=== PATIENT | female | born 1950 | race Caucasian/White ===

== ENCOUNTER 2019-04-23 08:29 | Inpatient (IN) | payer OTHER ==
[~2019-04-23] VITALS: Ht 160 cm; Wt 99.3 kg
[~2019-04-23 08:29] MED LIST: ACCUPRIL40 MG PO; LEVOXYL125 MCG PO; PEPCID40 MG PO; SKELAXIN 800 M800 M1 PO; SYMBICORT80 MCG/4.1 INH; TRAMADOL 50 MG50 MG PO; VENTOLIN HFA 1818 GM INH; VERAPAMIL ER240 M1 PO; VIBRAMYCIN 100100 MG PO; ZOCOR 20 MG TAB20 M1 PO
[2019-04-23 08:41] VITALS: BP 171/92
[2019-04-23] MEDS ORDERED: OMEPRAZOLE 20 M20 M1 PO (08:43)
[2019-04-23] MEDS ORDERED: PROAIR HFA8.5 GM INH (08:44)
[2019-04-23 09:03] LABS: HEMATOCRIT 44.2 % (37.0-47.0); HEMOGLOBIN 14.7 gm/dL (12.0-15.0); MCH 29.2 pg (26.0-34.0); MCHC 33.4 g/dL (28.0-37.0); MCV 87.5 fL (80.0-100.0); MPV 7.2 fl. (7.2-11.1); NUCLEATED RBCS 0 /100WBC; PLATELET COUNT* 335 thou/uL (150-400); RBC 5.05 mil/uL (4.20-5.00); RDW-CV 14.4 % (10.5-14.5); WBC 7.8 thou/uL (4.0-11.0)
[2019-04-23 09:16] LABS: CALCIUM 9.3 mg/dL (8.5-10.1); CREATININE 0.8 mg/dL (0.6-1.3); POTASSIUM 3.5 mmol/L (3.5-5.1)
[2019-04-23 09:21] LABS: ALBUMIN 3.2 g/dL (3.4-5.0); TOTAL BILIRUBIN 0.6 mg/dL (<0.1-1.0); TOTAL PROTEIN 7.5 g/dL (6.4-8.2)
[2019-04-23 09:34] LABS: ABSOLUTE LYMPHOCYTES 0.5 thou/uL (0.8-5.3); ABSOLUTE MONOCYTES 0.4 thou/uL (0.0-1.2); ABSOLUTE NEUTROPHILS 6.9 thou/uL (1.6-8.1); PLATELET ESTIMATE ADEQUATE
[2019-04-23 12:46] VITALS: BP 131/67
[2019-04-23] MEDS ORDERED: MELOXICAM15 MG PO (19:06)
[2019-04-23] MEDS ORDERED: ALLEGRA ALLERGY60 MG PO (19:07)
[2019-04-23] MEDS ORDERED: VITAMIN D22000 UNIT PO (19:08)
[2019-04-23] MEDS ORDERED: ALBUTEROL2.5 MG/0.5 INH (19:10)
[2019-04-23] MEDS ORDERED: PULMICORT0.25 MG/2 NEB (19:11)
--- NOTE | 2019-04-23 19:56 | EKG ---
[place] [address] ELECTROCARDIOGRAM REPORT Name: FÉLIX WYATT Room: [address] ADM IN M.R.#: [id number] Admission: 04/23/19 Attend Phys: Augustus Wahl MD Discharge: Date of : 52 Report #: [id number] THIS REPORT FOR: //name// [facility] ED Test Date: 2019-04-23 Test Time: 08:50:26 Pat Name: FÉLIX WYATT Department: Room: [facility] Gender: F Supervising Producer: : 1950 Requested By: Luis Alberto Valenzuela Order Number: [id number] MD: León Lee Measurements Intervals [place] Rate: 93 P: 85 MS: 164 QRS: 9 QRSD: 91 T: 60 QT: 357 QTc: 445 Interpretive Statements Sinus rhythm Compared to ECG 12/27/2012 08:46:11 ST (T wave) deviation no longer present Electronically Signed On 04-23-2019 19:56:26 ENGINEERING CONSULTANT by León Lee [email or web address] <ELECTRONICALLY SIGNED> By: León Lee MD, [facility] 04/23/191955 0850 León Lee MD, [facility] /EPI
[2019-04-23 23:57] VITALS: BP 125/75
--- NOTE | 2019-04-24 04:54 | NUR ---
PATIENT SLEPT WELL DURING THE NIGHT. PT UP AD MILAN TO BATHROOM TO VOID. PT REQUESTED PAIN MEDICATION X3 AND RECEIVED FENTENYL 50MCG IV. PT REQUESTED ZOFRAN X1; GIVEN AND SCAPOLAMINE PATCH PLACED. FLUIDS/ANTIBIOTICS INFUSING PER DR ORDER. FREQUENTLY USED ITEMS AND CALL LIGHT WITHIN REACH. SIDERAILS UPX2. WILL CONTINUE TO MONITOR.
[2019-04-24 05:09] LABS: ABSOLUTE LYMPHOCYTES 0.6 thou/uL (0.8-5.3); ABSOLUTE MONOCYTES 0.8 thou/uL (0.0-1.2); ABSOLUTE NEUTROPHILS 4.5 thou/uL (1.6-8.1); BASOPHILS 0.7 %; EOSINOPHILS 0.4 %; HEMATOCRIT 40.2 % (37.0-47.0); HEMOGLOBIN 13.1 gm/dL (12.0-15.0); MCH 28.9 pg (26.0-34.0); MCHC 32.5 g/dL (28.0-37.0); MCV 89.1 fL (80.0-100.0); MPV 7.5 fl. (7.2-11.1); NUCLEATED RBCS 0 /100WBC; PLATELET COUNT* 274 thou/uL (150-400); POLYS 75.9 %; RBC 4.51 mil/uL (4.20-5.00); RDW-CV 14.5 % (10.5-14.5); WBC 5.9 thou/uL (4.0-11.0)
[2019-04-24 05:49] LABS: CALCIUM 8.4 mg/dL (8.5-10.1); CREATININE 0.7 mg/dL (0.6-1.3); POTASSIUM 3.4 mmol/L (3.5-5.1)
[2019-04-24 08:20] VITALS: BP 140/64
--- NOTE | 2019-04-24 17:28 | NUR ---
PATIENT RESTING IN BED. PATIENT IS UP AD MILAN IN ROOM. PATIENT HAS COMPLAINTS OF ABDOMINAL PAIN, TREATED ADEQUATELY WITH FENTANYL. PATIENT TAKES IN SMALL AMOUNTS OF CLEARS. PATIEN THAS COMPLAINTS OF NAUSEA, NO VOMITING, TREATED ADEQUATELY WITH ZOFRAN. PATIENT IS SQUEDULED FOR FLEXSIG IN AM, AND IS TO BE NPO AFTER MIDNIGHT. PATIENT IS PASSING SMALL AMOUNT OF FLATUS. PATIENT DENIES ANY NEEDS AT THIS TIME. CALL LIGHT WITHIN REACH.
[2019-04-24 17:29] VITALS: BP 110/56
[2019-04-25] VITALS: BP 109/39
[2019-04-25 04:37] LABS: ABSOLUTE LYMPHOCYTES 0.5 thou/uL (0.8-5.3); ABSOLUTE MONOCYTES 0.7 thou/uL (0.0-1.2); ABSOLUTE NEUTROPHILS 5.6 thou/uL (1.6-8.1); BASOPHILS 0.7 %; EOSINOPHILS 0.7 %; HEMATOCRIT 37.7 % (37.0-47.0); HEMOGLOBIN 12.3 gm/dL (12.0-15.0); LYMPHOCYTES 7.3 %; MCH 29.1 pg (26.0-34.0); MCHC 32.6 g/dL (28.0-37.0); MCV 89.2 fL (80.0-100.0); MONOCYTES 10.6 %; MPV 7.4 fl. (7.2-11.1); NUCLEATED RBCS 0 /100WBC; PLATELET COUNT* 271 thou/uL (150-400); POLYS 80.7 %; RBC 4.23 mil/uL (4.20-5.00); RDW-CV 14.7 % (10.5-14.5)
[2019-04-25 05:24] LABS: ALBUMIN 2.4 g/dL (3.4-5.0); CALCIUM 8.7 mg/dL (8.5-10.1); CREATININE 0.8 mg/dL (0.6-1.3); POTASSIUM 3.1 mmol/L (3.5-5.1); TOTAL BILIRUBIN 0.3 mg/dL (<0.1-1.0); TOTAL PROTEIN 5.9 g/dL (6.4-8.2)
[2019-04-25 07:45] VITALS: BP 102/47
[2019-04-25 09:54] VITALS: BP 102/47
[2019-04-25 16:00] VITALS: BP 100/41
--- NOTE | 2019-04-25 19:15 | NUR ---
PT ARRIVED TO UNIT AROUND 1420. AGREE WITH EARLIER ASSESSMENT OF PT. PT UP WITH SBA DUE TO RECENT ANESTHESIA. C/O SLIGHT PAIN IN ABD, NO PAIN MEDICATION REQUESTED AT THIS TIME. NO C/O NAUSEA OR DIZZINESS. ON 2L, WHEEZING HEARD MOST WHILE UP. WILL CONTINUE TO MONITOR.
[2019-04-25 19:20] VITALS: BP 111/50
[2019-04-25 23:50] VITALS: BP 134/60
[2019-04-26 03:45] VITALS: BP 111/49
[2019-04-26 04:58] LABS: HEMATOCRIT 37.6 % (37.0-47.0); MCH 28.8 pg (26.0-34.0); MCV 89.8 fL (80.0-100.0); MPV 7.3 fl. (7.2-11.1); NUCLEATED RBCS 0 /100WBC; PLATELET COUNT* 241 thou/uL (150-400); RBC 4.19 mil/uL (4.20-5.00); RDW-CV 14.7 % (10.5-14.5); WBC 8.1 thou/uL (4.0-11.0)
[2019-04-26 05:35] LABS: CALCIUM 8.8 mg/dL (8.5-10.1); CREATININE 0.7 mg/dL (0.6-1.3); MAGNESIUM 2.1 mg/dL (1.8-2.4); PHOSPHORUS* 3.2 mg/dL (2.5-4.9); POTASSIUM 3.9 mmol/L (3.5-5.1)
[2019-04-26 05:55] LABS: ABSOLUTE LYMPHOCYTES 0.4 thou/uL (0.8-5.3); ABSOLUTE MONOCYTES 0.5 thou/uL (0.0-1.2); ABSOLUTE NEUTROPHILS 7.2 thou/uL (1.6-8.1); PLATELET ESTIMATE ADEQUATE
[2019-04-26 08:11] VITALS: BP 120/45
--- NOTE | 2019-04-26 09:18 | NUR ---
ASSUMED CARE OF PT THIS AM AROUND 0715- TEST RIDER IN PLACE ORDERED, TRACING SR- UPON ASSESSMENT PT NOTED TO BE RESTING IN BED, WATCHING TV- PT A&O X4- CONTINENT VS INCONTINENT OF B/B- UP AD-MILAN IN ROOM, STEADY GAIT NOTED- DIMINISHED LUNG SOUNDS, DYSPNEA NOTED ON EXERTION- VSS, O2 SAT 97% ON 2L VIA NC- ABD SOFT/ROUND/OBESE, BS ACTIVE- PT NOTED TO BE HAVING DIARRHEA THIS AM- IV NOTED TO LEFT FA INTACT, IVF WELL ABT INFUSSING PRESCIBER- ABD X-RAY WELL CT CHEST COMPLETED THIS AM PRESCIBED, RESULTS NOTED IN MEDITECH- CLEAR LIQUID DIET IN PLACE INDICATED- PT DENIES ANY C/O PAIN/DISCOMFORT THIS AM- CALL LIGHT AND PERSONAL BELONGINGS WITH IN REACH- HOURLY ROUNDS IN PLACE R/T SAFETY/NEEDS- ALL NEEDS MET AT THIS TIME-WCTM
--- NOTE | 2019-04-26 10:52 | EKG ---
[place] [address] ELECTROCARDIOGRAM REPORT Name: FÉLIX WYATT Room: [address] ADM IN .R.#: [id number] Admission: 04/23/19 Attend Phys: Augustus Wahl MD Discharge: Date of : 52 Report #: [id number] THIS REPORT FOR: //name// [facility] Test Date: 2019-04-25 Test Time: 13:08:33 Pat Name: FÉLIX WYATT Department: Room: [facility] Gender: F Tapper Bit: LARA : 1950 Requested By: Rusty Noble Order Number: [id number] Reading MD: Jai Iglesias Measurements Intervals [place] Rate: 97 P: 85 NM: 162 QRS: 13 QRSD: 97 T: 49 QT: 372 QTc: 473 Interpretive Statements Sinus rhythm Ventricular bigeminy Borderline low voltage, extremity leads Compared to ECG 04/23/2019 08:50:26 Ventricular premature complex(es) now present Electronically Signed On 04-26-2019 10:52:24 BISQUE PLACER by Jai Iglesias [email or web address] <ELECTRONICALLY SIGNED> By: Jai Iglesias MD, [facility] 04/26/19 1052 1308 1308 Jai Iglesias MD, [facility] /EPI
[2019-04-26 12:58] VITALS: BP 120/48
--- NOTE | 2019-04-26 13:03 | NUR ---
cm completed initial assessment to discuss d/c planning. pt lives @ home w/sister. pt sister is supportive. pt is independent w/ADLs, active and employeed. pt states she has a nebulizer at home. pt denies hx w/snf/hh. no needs identified at this time. cm to remain avial to assist as needed.
[2019-04-26 16:00] VITALS: BP 123/59
[2019-04-26 19:40] VITALS: BP 110/56
[2019-04-27] VITALS: BP 116/59
[2019-04-27 04:00] VITALS: BP 96/51
[2019-04-27 08:06] VITALS: BP 119/51
[2019-04-27 11:02] LABS: URINE BILIRUBIN NEGATIVE (Negative); URINE BLOOD TRACE (Negative); URINE CLARITY CLEAR; URINE COLOR YELLOW; URINE GLUCOSE-RANDOM NEGATIVE (Negative); URINE KETONES 1+ (Negative); URINE LEUKOCYTES-REFLEX NEGATIVE (Negative); URINE NITRITE-REFLEX NEGATIVE (Negative); URINE PROTEIN NEGATIVE (Negative); URINE SPECIFIC GRAVITY 1.025 (1.005-1.030); URINE UROBILINOGEN 0.2 E.U./dl (0.2-1.0)
[2019-04-27 12:16] VITALS: BP 126/61
--- NOTE | 2019-04-27 18:39 | NUR ---
Pt transfered to room 312. Report called to NEDRA Swanson. All pt belongings taken with pt.
--- NOTE | 2019-04-27 20:02 | NUR ---
PATIENT ALERT AND ORIENTED X4. ALL SAFETY MEASURES MAINTAINED. PATIENT DENIES FURTHER NEEDS/ QUESTIONS AT THIS TIME. REPORT FROM NEDRA IRVING.
[2019-04-27 21:00] VITALS: BP 123/62
[2019-04-28 04:53] LABS: ALBUMIN 2.3 g/dL (3.4-5.0); CALCIUM 8.7 mg/dL (8.5-10.1); CREATININE 0.6 mg/dL (0.6-1.3); MAGNESIUM 2.1 mg/dL (1.8-2.4); PHOSPHORUS* 3.1 mg/dL (2.5-4.9); TOTAL BILIRUBIN 0.4 mg/dL (<0.1-1.0); TOTAL PROTEIN 5.7 g/dL (6.4-8.2)
[2019-04-28 05:21] LABS: ABSOLUTE EOSINOPHILS 0.1 thou/uL (0.0-0.7); ABSOLUTE LYMPHOCYTES 0.8 thou/uL (0.8-5.3); ABSOLUTE MONOCYTES 0.6 thou/uL (0.0-1.2); ABSOLUTE NEUTROPHILS 4.9 thou/uL (1.6-8.1); BASOPHILS 0.7 %; EOSINOPHILS 1.4 %; HEMATOCRIT 37.2 % (37.0-47.0); HEMOGLOBIN 12.2 gm/dL (12.0-15.0); LYMPHOCYTES 12.2 %; MCH 29.1 pg (26.0-34.0); MCHC 32.9 g/dL (28.0-37.0); MCV 88.7 fL (80.0-100.0); MONOCYTES 9.6 %; MPV 7.9 fl. (7.2-11.1); NUCLEATED RBCS 0 /100WBC; PLATELET COUNT* 237 thou/uL (150-400); POLYS 76.1 %; RDW-CV 14.7 % (10.5-14.5); WBC 6.4 thou/uL (4.0-11.0)
[2019-04-28 05:30] LABS: POTASSIUM 2.9 mmol/L (3.5-5.1)
--- NOTE | 2019-04-28 05:54 | NUR ---
PATIENT SLEPT PART OF THE NIGHT. IV FLUIDS AND ANTIBIOTICS WERE GIVEN ORDERED. PATIENT STARTED POOPING FROM MAG CITRATE THAT WAS GIVEN. PATIENT REMAINS ON 2L PER NASAL CANNULA. WILL CONTINUE TO MONITOR.
[2019-04-28 08:00] VITALS: BP 134/56
--- NOTE | 2019-04-28 14:52 | NUR ---
RIGHT BASILIC VESSEL ACCESSED FOR 4 [place] SINGLE LUMEN PICC. LINE PRE-TRIMMED TO 43CM AND ADVANCED TO THE ZERO CLOTILDE WITH NO RESISTANCE MET. UPPER ARM CIRCUMFERENCE ABOVE INSERTION SITE=12 1/2". SHERLOCK MAGNET AND 3CG CONFIRMATION OF TIP TERMINATION AT THE CAVOATRIAL JUNCTION APPRECIATED. GUIDEWIRE REMOVED, LINE FLUSHED AND INSERTINO SITE DRESSED. REPORT GIVEN RANJAN SNEED.
[2019-04-28 16:00] VITALS: BP 139/69
--- NOTE | 2019-04-28 17:15 | NUR ---
PT UP IN ROOM WITH STEADY GAIT. BOWEL PREP TODAY. PT HAS HAD MULTIPLE LOOSE STOOLS. IVF INFUSING. DENIES PAIN N/V. PLAN FOR SURGERY IN AM
[2019-04-28 19:40] VITALS: BP 159/66
[2019-04-29 04:21] LABS: HEMATOCRIT 36.2 % (37.0-47.0); HEMOGLOBIN 11.9 gm/dL (12.0-15.0); MCHC 32.8 g/dL (28.0-37.0); MCV 88.5 fL (80.0-100.0); MPV 7.7 fl. (7.2-11.1); RBC 4.09 mil/uL (4.20-5.00); RDW-CV 14.5 % (10.5-14.5); WBC 7.3 thou/uL (4.0-11.0)
[2019-04-29 04:29] VITALS: BP 159/66
[2019-04-29 04:29] LABS: ALBUMIN 2.2 g/dL (3.4-5.0); CALCIUM 8.4 mg/dL (8.5-10.1); CREATININE 0.6 mg/dL (0.6-1.3); POTASSIUM 3.4 mmol/L (3.5-5.1); TOTAL BILIRUBIN 0.4 mg/dL (<0.1-1.0); TOTAL PROTEIN 5.5 g/dL (6.4-8.2)
--- NOTE | 2019-04-29 06:26 | NUR ---
PT ALERT AND ORIENTED. VSS ON RA. SLEPT OFF AND ON THIS SHIFT. PT ON BOWEL PREP. PT HAD SEVERAL BMs THIS SHIFT. UP AD MILAN TO BSC. RUBIA PICC. MEDS GIVEN PER EMAR. NPO AFTER MIDNIGHT. PRE OP CHECKLIST INITIATED. PRE OP TO STOCK TRACER PT AT 0730. NO PAIN THIS SHIFT. CALL LIGHT WITHIN REACH. HOURLU ROUNDINGS MADE. WILL CONTINUE TO MONITOR.
--- NOTE | 2019-04-29 07:30 | NUR ---
PT TO OR FOR SURGERY. PT UP TO RESTROOM PRIOR TO LEAVING UNIT. PT A&OX4, UP AD MILAN GAIT STEADY. PT LEAVES UNIT ON BED WITH OR STAFF.
--- NOTE | 2019-04-29 16:48 | NUR ---
THIS PT WENT TO PACU AT BEGINNING OF THIS NURSE'S SHIFT PRIOR TO ASSESSMENT. PT WILL NOT BE RETURNING TO THIS UNIT POST-OP. PT TO GO TO TELE FLOOR FOR OBSERVATION AND MONITORING.
[2019-04-29 20:00] VITALS: BP 109/54
[2019-04-30] VITALS: BP 107/52
[2019-04-30 04:00] VITALS: BP 108/48
[2019-04-30 05:15] LABS: HEMATOCRIT 35.7 % (37.0-47.0); HEMOGLOBIN 11.5 gm/dL (12.0-15.0); MCHC 32.3 g/dL (28.0-37.0); MCV 89.6 fL (80.0-100.0); MPV 7.5 fl. (7.2-11.1); RBC 3.98 mil/uL (4.20-5.00); WBC 14.5 thou/uL (4.0-11.0)
[2019-04-30 05:34] LABS: ALBUMIN 1.8 g/dL (3.4-5.0); CALCIUM 8.2 mg/dL (8.5-10.1); CREATININE 0.6 mg/dL (0.6-1.3); MAGNESIUM 2.2 mg/dL (1.8-2.4); PHOSPHORUS* 3.8 mg/dL (2.5-4.9); POTASSIUM 4.4 mmol/L (3.5-5.1); TOTAL BILIRUBIN 0.4 mg/dL (<0.1-1.0)
--- NOTE | 2019-04-30 07:25 | NUR ---
CHANGE OF SHIFT, BEDSIDE REPORT GIVEN PATIENT SEEN AT BEDSIDE, IN BED ASLEEP ASSUMED PATIENT CARE
[2019-04-30 08:00] VITALS: BP 124/37
--- NOTE | 2019-04-30 08:08 | NUR ---
REPORT RECEIVED FROM PACU NURSE AT 1920. PATIENT ORIENTED TO ROOM, BED, CALL LIGHT, AND HOSPITAL POLICY. FALL PRECAUTIONS IN PLACE. SURGICAL DRESSINGS CDI. CONTINUOUS PULSE OXIMETRY IN PLACE. PAIN AND NAUSEA MEDS GIVEN PER EMAR. BUSTOS DRAINING DEPENDENTLY. HOURLY ROUNDING IN PLACE FOR PATIENT SAFETY. CLWR.
--- NOTE | 2019-04-30 08:27 | NUR ---
I HAVE REVIEWED THE DOCUMENTATION OF PARVEZ SNEED. I CONCUR WITH HIS CHARTING.
[2019-04-30 11:55] VITALS: BP 135/45
--- NOTE | 2019-04-30 13:59 | NUR ---
Nutrition: Pt admitted with colitis, diverticular stricture. Is now CLD, Ensure Clear ordered. Bed wt is up 223#. Seen for LOS. Encouraging nutritional supplements. Protein stores are severely low. Once pt diet advances, would recommend a protein supplement as well - Beneprotein. Mild to moderate risk. No other nutrition interventions needed at [facility]. Will follow up on diet order, po intake, labs 05/04/19.
[2019-04-30 15:33] VITALS: BP 135/49
[2019-04-30 20:00] VITALS: BP 114/49
[2019-05-01 04:00] VITALS: BP 130/54
[2019-05-01 04:43] LABS: HEMATOCRIT 31.9 % (37.0-47.0); HEMOGLOBIN 10.1 gm/dL (12.0-15.0); MCH 28.5 pg (26.0-34.0); MCHC 31.9 g/dL (28.0-37.0); MCV 89.3 fL (80.0-100.0); MPV 7.4 fl. (7.2-11.1); RBC 3.57 mil/uL (4.20-5.00); RDW-CV 15.4 % (10.5-14.5); WBC 13.3 thou/uL (4.0-11.0)
[2019-05-01 05:04] LABS: ALBUMIN 1.6 g/dL (3.4-5.0); CALCIUM 8.4 mg/dL (8.5-10.1); CREATININE 0.5 mg/dL (0.6-1.3); MAGNESIUM 2.1 mg/dL (1.8-2.4); PHOSPHORUS* 2.2 mg/dL (2.5-4.9); POTASSIUM 3.9 mmol/L (3.5-5.1); TOTAL BILIRUBIN 0.4 mg/dL (<0.1-1.0); TOTAL PROTEIN 5.1 g/dL (6.4-8.2)
--- NOTE | 2019-05-01 07:58 | NUR ---
ASSUMED PATIENT CARE AT 1900. ASSESSMENT COMPLETED CHARTED. PATIENT IS MED-SURG ON THE MONITOR. HOURLY ROUNDING IN PLACE FOR PATIENT SAFETY. CLWR.
[2019-05-01 08:00] VITALS: BP 121/56
[2019-05-01 10:01] LABS: % SATURATION 9 % (20-39); IRON 9 ug/dL (50-175)
[2019-05-01 16:00] VITALS: BP 122/62
--- NOTE | 2019-05-01 18:00 | NUR ---
ASSUMED PT CARE AT 0700, A&O X4, VSS, REMAINS ON O2 AT 3LPM VIA NC, LS DIMINISHED, PT UP WITH ASSIST TO BEDSIDE COMMODE, TOLERATING WELL, PASSING FLATULAS BUT UNABLE TO HAVE BOWEL MOVEMENT THIS SHIFT, BS HYPO ACTIVE, CONT ON SOFTENERS, FULL ASSESSMENT CHARTED. PICC LINE REMAINS PATENT WITH DRESSING CLEAN, DRY, AND INTACT. HOURLY ROUNDING COMPLETED.
[2019-05-01 19:40] VITALS: BP 118/66
[2019-05-02] VITALS: BP 110/49
--- NOTE | 2019-05-02 05:09 | NUR ---
PT CARE ASSUMED AT 1930. SAT MAINTAINED IN O2. ALERT AND ORIENTED X4. PT IS PAINFUL. CALL LIGHT WITHIN REACH AND BED IN LOW POSITION. SURGICAL SITE C/D/I. HOURLY ROUNDING DONE FOR PT SAFETY.
[2019-05-02 05:28] LABS: HEMATOCRIT 29.6 % (37.0-47.0); HEMOGLOBIN 9.7 gm/dL (12.0-15.0); MCH 29.3 pg (26.0-34.0); MCHC 32.8 g/dL (28.0-37.0); MCV 89.4 fL (80.0-100.0); MPV 7.7 fl. (7.2-11.1); RBC 3.31 mil/uL (4.20-5.00); RDW-CV 15.1 % (10.5-14.5); WBC 10.2 thou/uL (4.0-11.0)
[2019-05-02 05:39] LABS: CALCIUM 8.2 mg/dL (8.5-10.1); CREATININE 0.5 mg/dL (0.6-1.3); POTASSIUM 3.6 mmol/L (3.5-5.1)
[2019-05-02 16:26] VITALS: BP 135/67
--- NOTE | 2019-05-02 17:15 | NUR ---
pt to room 112 via wc. Call light within reach. Pt oriented to unit. Denies pain at this time
--- NOTE | 2019-05-02 17:25 | NUR ---
ASSUMED PT CARE AT 0700, PT A&O X4, REMAINS ON 2 LPM O2 VIA NC, MED SURG STATUS, FULL ASSESSMENT CHARTED. US TO RUE SHOWS CLOTS TO SUPERFICIAL VEINS, PICC LINE REMOVED, PT TOLERATED WELL. PT MOVED TO J&S UNIT AT APPROX 1720, REPORT GIVEN TO NEDRA GARZA. ALL BELONGINGS MOVED WITH PT, FAMILY NOTIFIED BY PT WELL. HOURLY ROUNDING COMPLETED.
[2019-05-02 19:10] VITALS: BP 123/58
--- NOTE | 2019-05-02 23:06 | NUR ---
[place] COMPLETED AT 191. PT PLEASANT AND COOPERATIVE, DENIED PAIN OR DISCOMFORT AT THAT TIME. VITAL SIGNS WITHIN NORMAL LIMITS. CALL LIGHT IN REACH, PT DEMONSTRATEDS PROPER USE.
--- NOTE | 2019-05-03 06:44 | NUR ---
DR VÁZQUEZ HERE THIS AM TO ASSES PT. RECIEVED ORDER TO INSERT PERIPHERAL IV IN LEFT UPPER EXTREMITY.
--- NOTE | 2019-05-03 06:58 | NUR ---
20 GUAGE SALINE LOCK INSERTED IN LEFT FOREARM.
--- NOTE | 2019-05-03 07:15 | NUR ---
CHANGE OF SHIFT, BEDSIDE REPORT GIVEN PATIENT SEEN AT BEDSIDE, IN BED RESTING ASSUMED PATIENT CARE
[2019-05-03 07:40] VITALS: BP 96/58
[2019-05-03 07:45] VITALS: BP 94/47
[2019-05-03 12:15] VITALS: BP 107/69
--- NOTE | 2019-05-03 14:03 | NUR ---
CODE STROKE CALLED ON PATIENT D/T PATIENT'S FAMILY CONCERN RE: MENTAL STATUS CHANGE, WELL DIETARY'S CONCERN THAT THE PATIENT HAD CHANGED. DR. MITCHELL AT BEDSIDE AND STATES PATIENT DOES NOT APPEAR TO HAVE A CHANGE IN MENTAL STATUS. DR. OHARA HAD BEEN NOTIFIED BY PATIENT'S RN AND ORDERS RECV'D FOR CODE STROKE CT AND TRANSFER TO TELE. O2 OFF PATIENT. REPLACED AT 2 L NC. BP 107/57, RR 18, HR 110 (IRREGULAR), SPO2 82% THEN UP TO >90% AFTER O2 REPLACED. BS 102. NIH COMPLETED. SEE CHARTING. PATIENT TRANSPORTED TO CT. BLOOD DRAWN. DR OHARA NOTIFIED OF HYPOXIA UPON ARRIVAL TO TELE.
--- NOTE | 2019-05-03 14:45 | NUR ---
PATIENT TRANSFER FROM [facility] REPORT GIVEN FROM KASSIDY PATIENT TO VIA BED PATIENT ORIENTED TO AND CALL LIGHT IN REACH O2 2L NC O2 SATS 93% DENIES PAIN TELE STATUS ST/PACS RATES 107
--- NOTE | 2019-05-03 15:07 | PATH ---
[address] [address] PATHOLOGY RPT PROCEDURE Name: ELI WYATT Room: [address] IN .R.#: [id number] Admission: 04/23/19 Date of : 52 Discharge: Report #: [id number] Path Case #: [id number] [facility] Accession Number: [id number] . 01 Material submitted: . colon - SIGMOID COLON. Modifiers: sigmoid . 01 Clinical history: . Diverticulitis . 02 Diagnosis: Sigmoid colon: - Segment of benign colon with severe diverticular disease including chronic and acute diverticulitis with mural abscess formation and fibrosis, acute serositis and serosal adhesions. - One benign and hyperplastic pericolic lymph node. - Two additional segments of benign colonic tissue suggesting anastomotic rings, one with submucosal/stromal black pigment tattooing (segment without blue stitch). (SHINE:raquel; 05/03/2019) QTP 05/03/2019 1447 Local . 02 Electronically signed: . Mark Ferrara MD, Pathologist NPI- [id number] . 01 Gross description: . The specimen is received in formalin, labeled "Eli Wyatt, sigmoid colon" and consists of a segment of colon measuring 26.0 cm in length and up to 4.8 cm in diameter with pericolic fat measuring up to 6.8 cm. Both margins are closed with a line of tung. The segment is unoriented. The serosa is pink-hicks with thin adhesions and scattered hemorrhage. Opening reveals 2 stents embedded within the lumen. The mucosa is pink-hicks and irregular due to the shape of the stents. No mass lesions are identified. Sectioning reveals multiple diverticula varying from smooth mucosal lined out pouch is 2 hemorrhagic and pink-red. No perforations are identified. Present within the pericolonic fat are a few readily identifiable lymph nodes measuring up to 0.9 cm. Present at the bottom of the container are 2 segments of gastrointestinal tissue. One has a blue stitch measuring 4.0 x 1.0 x 0.5 cm. The other has a line of tung measuring 4.5 x 1.6 x 1.0 cm. Sales Floor Associate sections are submitted as follows: . A1-A2: Margins A2-A5: Diverticula A6: Largest readily identifiable lymph node, trisected A7: Additionally received gastrointestinal tissue/possible anastomotic rings (blue stitch segment inked black) [place] [address] PATHOLOGY RPT PROCEDURE Name: ELI WYATT Room: [address] IN [facility]#: [id number] Admission: 04/23/19 Date of : 52 Discharge: Report #: [id number] Path Case #: [id number] (SDY; 04/30/2019) SYU/SYU 04/30/2019 1949 Local . 02 Pathologist provided ICD-10: K57.32, K65.8 . 02 CPT . 436677 Specimen Comment: A courtesy copy of this report has been sent to [phone] Specimen Comment: [phone], Specimen Comment: Report sent to , and Performed at: [address] [facility], [place] [address] MD Bud Mcmillan MD Phone: [phone] Performed at: [facility] [address], [place], [place] [address] MD Mark Ferrara MD Phone: [phone]
[2019-05-03 16:24] VITALS: BP 112/60
[2019-05-03 17:31] LABS: BE 1.1 mmol/L (-2 to +3); PCO2 41.4 mmHg (35.0-45.0); PO2 69.2 mmHg (75.0-100.0); pH 7.413 (7.340-7.450)
[2019-05-03 18:09] LABS: ALBUMIN 1.6 g/dL (3.4-5.0); CREATININE 0.7 mg/dL (0.6-1.3); POTASSIUM 3.8 mmol/L (3.5-5.1); TOTAL BILIRUBIN 0.5 mg/dL (<0.1-1.0)
--- NOTE | 2019-05-03 19:22 | CON ---
[address] [address] CONSULTATION Name: FÉLIX WYATT Room: [address] IN M.R.#: [id number] Admission: 04/23/19 Attend Phys: Mehran Wahl MD Discharge: Date of : 52 Report #: [id number] THIS REPORT FOR: //name// CC: MEHRAN Wahl [facility] Richard Odom DATE OF SERVICE: 04/23/2019 REASON FOR CONSULTATION: Abdominal pain. IMPRESSION: 1. Acute left lower quadrant pain with low-grade fever and abnormal CAT scan of the sigmoid colon -- suspect acute diverticulitis with possible obstruction. 2. Abdominal distention secondary to acute left lower quadrant pain with some element of colonic obstruction. RECOMMENDATIONS: 1. We will continue the patient with IV fluids, IV antibiotics, pain medications, antiemetics. 2. We will check serial x-rays to ensure that her abdomen is not getting worse as far as her colonic distention is concerned. 3. We will consult General Surgery in case she does not respond to IV antibiotics and develops worsening of her colonic obstruction. 4. Begin the patient on clear liquid diet at this time. 5. Make adjustments in her pain medications and antiemetics. 6. Hopefully, she will respond to medical measures and will not have to undergo exploratory laparotomy with sigmoid resection and temporary colostomy. At this time, I do not have any plans for flexible sigmoidoscopy. We will work with Surgery with regards to the same. 7. I have discussed these plans with the patient as well as her sister, Ericka, and they are agreeable to the same. 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 She has never had this kind of problem in the past, but has noted that her bowels would become a little bit more difficult to pass. She also had problem with increasing abdominal obstruction or abdominal distention. She had low-grade fevers and chills, but nothing as severe. She also had some nausea, not wanted to eat. She has never undergone previous studies of her upper or lower GI tract in the past. She is admitted to the hospital after being seen through Emergency Room with findings of colitis involving the sigmoid colon and [place] [address] CONSULTATION Name: FÉLIX WYATT Darius Room: [address]#: [id number] Admission: 04/23/19 Attend Phys: Mehran Wahl MD Discharge: Date of : 52 Report #: [id number] ALLERGIES: ERYTHROMYCIN. MEDICATIONS: Zocor, Accupril, levothyroxine, verapamil, omeprazole, and ProAir. PAST MEDICAL HISTORY: Remarkable for hypertension and hypothyroidism. She has chronic obstructive pulmonary disease, seasonal allergies. PAST SURGICAL HISTORY: She had previous left foot surgery as well. SOCIAL HISTORY: The patient smokes every day, does not drink alcohol. FAMILY HISTORY: Unremarkable. PHYSICAL EXAMINATION: GENERAL: Pleasant 68-year-old white female who appears older than her stated age. CARDIOPULMONARY: Revealed a regular rate and rhythm. She had diminished breath sounds. ABDOMEN: Soft. Was distended. She is tympanic. No rebound or guarding noted. LABORATORY DATA: Her laboratory tests from admission revealed white count of 7.8, hemoglobin 14.7, platelet count of 335,000. Her differential is normal. Sodium 139, potassium 3.5, chloride 102, bicarbonate is 25, BUN 21, creatinine 0.8. GFR 72. CT scan of the abdomen and pelvis revealed circumferential mural thickening and narrowing in the distal descending colon spanning a distance of about 15 cm with mild pericolonic soft tissue stranding concerning for focal colitis versus less likely a tumor. There were also some diverticula noted within the same. There was also a 1.9 x 1.7 x 1.1 soft tissue nodule within the right lung base, which is nonspecific and will need to be evaluated further with CT scan of the chest. DISCUSSION: At the present time, the patient has some issues with what appears to be diverticulitis. If she does not improve, she may need to have surgical intervention. We will continue to follow while in the hospital. <ELECTRONICALLY SIGNED> By: Arcadio Mcwilliams DO 05/03/191921 08 0023Gstacey Mcwilliams DO /nt
[2019-05-03 20:00] VITALS: BP 112/68
[2019-05-04] VITALS: BP 94/52
[2019-05-04 04:00] VITALS: BP 83/55; BP 98/44
[2019-05-04 05:47] LABS: CHOLESTEROL 105 mg/dL (<200); HDL CHOLESTEROL 19 mg/dL (>40); LDL CHOLESTEROL 67 mg/dL (<100); TC:HDL 5.5 Ratio (Not establshd); TRIGLYCERIDE 98 mg/dL (<150); VLDL 20 mg/dL (<40)
[2019-05-04 05:55] LABS: SERUM ASSESSMENT Clear
--- NOTE | 2019-05-04 06:56 | NUR ---
ASSUMED CARE OF PT AFTER REPORT AT 1930. PT A&O2-4. FORGETFUL AT TIMES. VSS. PHYSICAL ASSESSMENT COMPLETED AND CHARTED. PT ON O2 AT 2L NC. PT TRACING SR/PVC ON TELE. PT UP WITH 1 ASSIST TO BSC. PT COMPLAINED OF LLQ ABDOMINAL PAIN-MEDS GIVEN PER JUL. [facility] CHARTED. CALL LIGHT WITHIN REACH.
[2019-05-04 08:00] VITALS: BP 121/51
--- NOTE | 2019-05-04 11:22 | NUR ---
cm touchbased w/pt to see she had any questions/concerns. pt denies. states she still doesnt know when she will be d/c. cm reminded pt cm is avail to assist as needed.
--- NOTE | 2019-05-04 11:32 | NUR ---
Nutrition: reassessment. Diet order advanced to Soft. Pt tolerating po. Severely depleted protein stores - albumin 1.6, prealb 4.5. RD will order Beneprotein TID. Wt: 219#. GOALS: continue good po intake. Mild risk. Will continue to follow per protocol, 05/11/19.
[2019-05-04 12:02] VITALS: BP 105/71
[2019-05-04 15:32] VITALS: BP 122/59
[2019-05-04 20:10] VITALS: BP 130/60
--- NOTE | 2019-05-04 20:24 | NUR ---
ASSUMED PT CARE AT 0730. ASSESSMENT COMPLETED CHARTED. ABLE TO MAKE NEEDS KNOWN. UP WITH 1 TO BSC. C/O ABDOMINAL PAIN EARLIER IN SHIFT THAT WAS MOSTLY RELIEVED BY TYLENOL. RESTING IN BED MOST OF THE DAY. FAMILY AT BEDSIDE DURING THE LAST COUPLE HOURS OF SHIFT, ASKED MULTIPLE QUESTIONS AND NOTED TO WANT TO TALK TO PHYSICIANS TOMORROW. WILL CONTINUE TO MONITOR.
[2019-05-05] VITALS: BP 116/55
[2019-05-05 02:06] LABS: GLYCOHEMOGLOBIN (HGB A1C) 5.4 % (4.8-5.6)
[2019-05-05 03:20] LABS: ABSOLUTE EOSINOPHILS 0.1 thou/uL (0.0-0.7); ABSOLUTE LYMPHOCYTES 0.3 thou/uL (0.8-5.3); ABSOLUTE NEUTROPHILS 7.4 thou/uL (1.6-8.1); BASOPHILS 0.3 %; EOSINOPHILS 0.9 %; HEMATOCRIT 29.4 % (37.0-47.0); HEMOGLOBIN 9.7 gm/dL (12.0-15.0); LYMPHOCYTES 3.1 %; MCH 28.8 pg (26.0-34.0); MCHC 32.8 g/dL (28.0-37.0); MCV 87.8 fL (80.0-100.0); MONOCYTES 11.3 %; MPV 7.9 fl. (7.2-11.1); NUCLEATED RBCS 0 /100WBC; POLYS 84.4 %; RBC 3.35 mil/uL (4.20-5.00); RDW-CV 14.6 % (10.5-14.5); WBC 8.7 thou/uL (4.0-11.0)
[2019-05-05 03:23] LABS: PLATELET COUNT* 346 thou/uL (150-400)
[2019-05-05 03:29] LABS: CALCIUM 7.8 mg/dL (8.5-10.1); CREATININE 0.5 mg/dL (0.6-1.3); MAGNESIUM 1.8 mg/dL (1.8-2.4); POTASSIUM 3.1 mmol/L (3.5-5.1)
[2019-05-05 04:00] VITALS: BP 111/56
--- NOTE | 2019-05-05 07:18 | NUR ---
PATIENT HAS REMAINED A&OX4 THROUGHOUT SHIFT. NO CONFUSION NOTED. PATIENT ON 2L O2 NC, ALTHOUGH SHE REMOVES NASAL CANNULA AT TIMES AND DESATS TO MID 80'S. DRESSINGS REMAIN INTACT TO ABD WITH DRIED DRAINAGE. UP WITH ASSIST TO BSC. CALL LIGHT WITHIN REACH
[2019-05-05 08:00] VITALS: BP 121/57
[2019-05-05 11:00] VITALS: BP 114/55
--- NOTE | 2019-05-05 12:18 | NUR ---
CONTINUE TO FOLLOW, MET WITH PT SLEEPY TODAY. PT VOICED THAT SHE FEELS WEAK AND UNSURE SHE CAN RETURN HOME AT [place] HER SISTER WORKS DURING THE DAY. PT IS INTERESTED IN SNF AND AFTER OPTIONS DISCUSSED WANTS [facility] AND THEN [facility]. BOTH HAVE AVAILABILITY. PT WANTS TO CHECK [facility]. CALLED AND FAXED REFERRAL TO [facility].
--- NOTE | 2019-05-05 15:28 | EKG ---
[place] [address] ELECTROCARDIOGRAM REPORT Name: FÉLIX WYATT Room: [address] ADM IN M.R.#: [id number] Admission: 04/23/19 Attend Phys: Augustus Wahl MD Discharge: Date of : 52 Report #: [id number] THIS REPORT FOR: //name// [facility] Test Date: 2019-05-05 Test Time: 13:58:13 Pat Name: FÉLIX RAYRP Department: Room: [address] Gender: F Platemaker: : 1950 Requested By: Paula Sanford Order Number: [id number] Reading MD: Jae Jj Measurements Intervals [place] Rate: 141 P: ND: QRS: 4 QRSD: 60 T: QT: 306 QTc: 469 Interpretive Statements Atrial fibrillation Low voltage, precordial leads Baseline wander in lead(s) V1 Compared to ECG 04/25/2019 13:08:33 Sinus rhythm no longer present Ventricular premature complex(es) no longer present Electronically Signed On 05-05-2019 15:28:04 CASE WORKER by Jae Jj [email or web address] <ELECTRONICALLY SIGNED> By: Jae Jj MD, FAC 05/05/19 1528 1358 1358 Jae Jj MD, [facility] /EPI
[2019-05-05 16:00] VITALS: BP 120/41
--- NOTE | 2019-05-05 17:12 | 2DMMODE ---
[place] [address] 2 D/M-MODE ECHOCARDIOGRAM Name: FÉLIX WYATT Room: [address] IN [facility]#: [id number] Admission: 04/23/19 Attend Phys: Augustus Wahl, Discharge: Date of : 52 Date of Service: 05/05/19 1711 Report #: [id number] THIS REPORT FOR: //name// APPROVED REPORT Study performed: 05/05/2019 16:13:46 EXAM: Comprehensive 2D, Doppler, and color-flow Echocardiogram Patient Location: In-Patient Room #: 225 Status: routine BSA: 1.91 HR: 86 bpm BP: 114/55 mmHg Rhythm: NSR Other Information Study Quality: Adequate Technically limited study due to POOR APICAL VIEWS, UNABLE TO POSITION PATIENT. Indications Atrial Fibrillation 2D Dimensions IVSd: 10.75 (7-11mm) LVOT Diam: 20.00 (18-24mm) LVDd: 43.03 mm PWd: 9.99 (7-11mm) LVDs: 29.28 (25-40mm) Aortic Root: 32.35 mm Aortic Valve AoV Peak Brennen.: 1.89 m/s AO Peak Gr.: 14.36 mmHg LVOT Max P.50 mmHg AO Mean Gr.: 9.07 mmHg LVOT Mean P.26 mmHg LVOT Max V: 1.06 m/s AO V2 VTI: 30.09 cm LVOT Mean V: 0.69 m/s DIONNE (VTI): 1.77 cm2 LVOT V1 VTI: 16.94 cm Mitral Valve E/A Ratio: 0.50 MV Decel. Time: 203.88 ms MV E Max Brennen.: 0.60 m/s MV PHT: 59.12 ms MVA (PHT): 3.72 [place]2 [place] [address] 2 D/M-MODE ECHOCARDIOGRAM Name: FÉLIX WYATT Room: [address] IN [facility]#: [id number] Admission: 04/23/19 Attend Phys: Augustus Wahl, Discharge: Date of : 52 Date of Service: 05/05/19 1711 Report #: [id number] Pulmonary Valve PV Peak Brennen.: 1.12 m/s PV Peak Gr.: 5.06 mmHg Left Ventricle The left ventricle is normal size. There is normal LV segmental wall motion. There is normal left ventricular wall thickness. Left ventricular systolic function is normal. LVEF is 55-60%. Grade I - abnormal relaxation pattern. Right Ventricle The right ventricle is normal size. The right ventricular systolic function is normal. Atria The left atrium size is normal. The right atrium size is normal. Aortic Valve The aortic valve is normal in structure. No aortic regurgitation is present. There is no aortic valvular stenosis. Mitral Valve The mitral valve is normal in structure. There is no mitral valve regurgitation noted. No evidence of mitral valve stenosis. Tricuspid Valve The tricuspid valve is normal in structure. Unable to assess PA pressure. Trace tricuspid regurgitation. Pulmonic Valve The pulmonary valve is normal in structure. There is no pulmonic valvular regurgitation. Great Vessels The aortic root is normal in size. IVC is normal in size and collapses >50% with inspiration. Pericardium There is no pericardial effusion. <Conclusion> The left ventricle is normal size. There is normal left ventricular wall thickness. Left ventricular systolic function is normal. LVEF is 55-60%. [place] [address] 2 D/M-MODE ECHOCARDIOGRAM Name: FÉLIX WYATT Room: [address] IN [facility]#: [id number] Admission: 04/23/19 Attend Phys: Augustus Wahl, Discharge: Date of : 52 Date of Service: 05/05/191710 Report #: [id number] Grade I - abnormal relaxation pattern. Trace tricuspid regurgitation. IVC is normal in size and collapses >50% with inspiration. <ELECTRONICALLY SIGNED> By: León Lee MD, [facility] 05/05/191710 10 10 León Lee MD, FACC /INF
[2019-05-05 19:40] VITALS: BP 112/55
--- NOTE | 2019-05-05 22:40 | OP ---
[address] [address] OPERATIVE REPORT Name: FÉLIX WYATT Room: [address] IN M.R.#: [id number] Admission: 04/23/19 Attend Phys: Augustus Wahl MD Discharge: Date of : 52 Report #: [id number] THIS REPORT FOR: //name// CC: Augustus Odom DATE OF SERVICE: 04/29/2019 SURGEON: Jean-Claude Michaels DO DIRECTOR OF COLLECTIONS AND ARCHIVES: Dr. Erickson Diamond. PREOPERATIVE DIAGNOSIS: Complicated diverticulitis, diverticular stricture. POSTOPERATIVE DIAGNOSIS: Complicated diverticulitis, diverticular stricture. PROCEDURE: Hand-assisted laparoscopic sigmoidectomy with primary anastomosis. INDICATIONS: The patient is a 68-year-old female who presented to the hospital with abdominal pain, abdominal distention and discomfort. She had never had a colonoscopy. CT imaging revealed a mass-like structure with pericolonic stranding at her sigmoid colon. She underwent a colonoscopy with the GI team. The colonoscopy revealed a diverticular stricture with purulence on exam. The stricture was able to be traversed with a colonoscope. She was kept in the hospital and given a slow bowel prep over a 2-day period. During the colonoscopy, 2 stents were also left to prevent a complete obstruction. The risks and benefits of surgery were discussed in detail with the patient including bleeding, infection, damage to nearby structures including the small bowel, colon, ureter and vascular structures. The patient agreed to proceed with an operation. DESCRIPTION OF PROCEDURE: The patient was taken to the operating theater and placed in the supine position. General anesthesia was induced without complication. She had been receiving antibiotics on the floor. Bilateral SCDs were placed. A timeout was performed and all were in agreement. The patient was then positioned in the modified lithotomy position and her abdomen was prepped and draped in the standard sterile fashion. Next, a Paradise trocar entry was performed 3 fingerbreadths above the umbilicus. A small skin incision was made using a 10 blade scalpel. Dissection was carried down to the midline fascia using S retractors. The fascia was incised using electrocautery and the peritoneum was entered bluntly. Paradise trocar was placed and 2 stay sutures were used on both sides of the fascia to secure the Paradise trocar. The abdomen was insufflated without complication. Next, two more 5 mm ports were placed, one in the left upper quadrant and one in the right lower quadrant under direct visualization without complication. The patient was then placed in steep Trendelenburg and the sigmoid colon was seen to [place] [address] OPERATIVE REPORT Name: FÉLIX WYATT Room: [address] IN ..#: [id number] Admission: 04/23/19 Attend Phys: Augustus Wahl MD Discharge: Date of : 52 Report #: [id number] pelvic wall. There was significant induration and inflammation in this area. The colonic stents could be felt. There was no pericolonic abscess or signs of active infection. Next, the patient was placed in reverse Trendelenburg and the lesser sac was entered using a LigaSure device. The splenic flexure was taken down carefully using the ligasure. The stomach was elevated anteriorly and the transverse colon was taken inferiorly and anteriorly. The colonic attachments were taken down using the LigaSure device. Once the splenic flexure had been mobilized, the sigmoid colon adhesions were carefully taken down from the side wall. This took a significant amount of time lysing adhesions and retracting the sigmoid colon medially to carefully dissect the colon from the retroperitoneum and sidewall. Once this was accomplished, the white line of Toldt was found and this was taken down using the LigaSure device moving cephalad to meet the area prior dissection when the splenic flexure was taken down. The patient was then placed in Trendelenburg again and the proximal rectum and distal sigmoid colon were dissected from their lateral attachments along the white line of Toldt. There was significant amount of adhesions and inflammation in this area as well. Tattoos were appreciated at the proximal and distal ends of the inflammation. At the distal end, a small mesenteric window was made using the LigaSure. At this point, a REGIS stapler was used. A purple load was used to come across the distal sigmoid distal to the tattoo. This was accomplished with two loads of the stapler. Next, the sigmoid mesentery was ligated using the LigaSure. The ROZINA was appreciated, dissected, and taken with the LigaSure. This was skeletonized from the surrounding mesentery after the sigmoid mesentery was taken down near the sigmoid colon. A small incision was then made at the site of the Paradise trocar. This was approximately 5 cm in length. The sigmoid colon could not be completely extracorporealized and it was felt that a hand port could assist with this. The incision was then made slightly larger approximately another 2 cm and a GelPort was placed. The GelPort was used to retract the sigmoid colon medially as more mesentery was taken with the LigaSure device. Once the colon was completely mobilized, the proximal sigmoid colon, proximal to the tattoo, was transected using a purple load stapler and the specimen was removed from the abdominal cavity. We then scored the mesentery while the abdomen was open to decrease tension and the proximal end of the colon was extracorporealized. The staple line was cut using curved Flores scissors. Adequate bleeding was appreciated. Next, the proximal portion of the colon was dilated using rectal dilators to 31. My enrichment assistant then dilated the rectum from below the drapes to 31. An EEA stapler was opened and a 31 anvil was placed inside the proximal colon. A 2-0 PDS was used to pursestring the anvil into place. Next, the colon was placed back into the abdominal cavity and the GelPort was replaced. The abdomen was insufflated and the anvil was taken down to the rectal stump where no tension was appreciated. Dr. Diamond then went below the drape and placed the EEA stapler into the rectum and advanced the 31 EEA stapler to the staple line. The stapler was opened and the spike came out just anterior to the staple line within the tenia coli. The anvil was grasped [place] [address] OPERATIVE REPORT Name: YOSELINFÉLIX Darius Room: [address]#: [id number] Admission: 04/23/19 Attend Phys: Augustus Wahl MD Discharge: Date of : 52 Report #: [id number] audible click was heard. We were careful that no small bowel or other structures were in the way of the anastomosis when the stapler was closed. The stapler was fired and extracted from the rectum. Anastomotic rings were intact. Next, the pelvis was irrigated and filled with normal saline and an anoscope was introduced into the rectum. The rectum was insufflated while the colon proximal to the anastomosis was occluded digitally. The area of the anastomosis was visually insufflated under water and no bubbles were appreciated. The abdomen was inspected for hemostasis including the spleen. The abdomen was hemostatic and the ports were taken out under direct visualization. The GelPort was then removed and the midline fascia was closed using two #1 looped PDS sutures. The midline wound was closed using tung. The 12 mm trocar site was closed using a 0 Vicryl on the fascia in a figure of eight fashion. All skin port sites were then closed using 4-0 Monocryl and covered with Steri-Strips. This concluded the procedure. All sponge, needle and instrument counts were correct x 2. ANESTHESIA: General endotracheal anesthesia. ESTIMATED BLOOD LOSS: 100 mL. COMPLICATIONS: None. DRAINS: None. DISPOSITION: The patient was extubated in the operating room and taken to the PACU in stable condition. <ELECTRONICALLY SIGNED> By: Jean-Claude Michaels DO 05/05/19 2240 1703 1956Jean-Claude Michaels DO /nt
[2019-05-06] VITALS: BP 123/61
--- NOTE | 2019-05-06 00:40 | NUR ---
PATIENT ORIENTED X4. PAIN AT IV SITE, RELIEVED WITH ACETAMINOPHEN AND NEW IV. ON 2L O2 NC WITH SATS >92%. PATIENT REQUIRES REPOSITIONING Q2H BUT SHE REFUSES AT TIMES DESPITE EDUCATION ON SKIN INTEGRITY AND IMPORTANCE OF TURNING. REPORT GIVEN TO NEDRA COLVIN. CALL LIGHT WITHIN REACH
[2019-05-06 04:00] VITALS: BP 110/56
[2019-05-06 07:00] VITALS: BP 155/84
[2019-05-06 10:14] LABS: CALCIUM 9.1 mg/dL (8.5-10.1); CREATININE 0.5 mg/dL (0.6-1.3); POTASSIUM 3.6 mmol/L (3.5-5.1)
--- NOTE | 2019-05-06 11:32 | NUR ---
cm contacted [facility] to f/u on pt status. [facility] stated [facility] is able to accept pt. And, "we should be able to get her in tomorrow."
[2019-05-06 12:00] LABS: ALBUMIN 1.5 g/dL (3.4-5.0); CALCIUM 8.7 mg/dL (8.5-10.1); CREATININE 0.5 mg/dL (0.6-1.3); POTASSIUM 3.9 mmol/L (3.5-5.1); TOTAL BILIRUBIN 0.3 mg/dL (<0.1-1.0); TOTAL PROTEIN 5.8 g/dL (6.4-8.2)
[2019-05-06 14:41] LABS: ABSOLUTE EOSINOPHILS 0.1 thou/uL (0.0-0.7); ABSOLUTE LYMPHOCYTES 0.4 thou/uL (0.8-5.3); ABSOLUTE MONOCYTES 0.8 thou/uL (0.0-1.2); ABSOLUTE NEUTROPHILS 9.3 thou/uL (1.6-8.1); BASOPHILS 0.4 %; EOSINOPHILS 0.7 %; HEMATOCRIT 34.4 % (37.0-47.0); HEMOGLOBIN 11.3 gm/dL (12.0-15.0); LYMPHOCYTES 3.9 %; MCH 28.8 pg (26.0-34.0); MCHC 32.7 g/dL (28.0-37.0); MCV 88.1 fL (80.0-100.0); MONOCYTES 7.4 %; MPV 7.6 fl. (7.2-11.1); NUCLEATED RBCS 0 /100WBC; POLYS 87.6 %; RBC 3.91 mil/uL (4.20-5.00); RDW-CV 14.9 % (10.5-14.5); WBC 10.7 thou/uL (4.0-11.0)
[2019-05-06 14:46] LABS: PLATELET COUNT* 487 thou/uL (150-400)
[2019-05-06 16:00] VITALS: BP 107/53
[2019-05-06 20:05] VITALS: BP 123/61
[2019-05-07] VITALS: BP 120/43
[2019-05-07 04:00] VITALS: BP 113/71
--- NOTE | 2019-05-07 07:48 | NUR ---
Pt denies complaints. VSS. Dressing to ML abdomen intact with small amount of drainage. Will continue to monitor.
--- NOTE | 2019-05-07 08:22 | NUR ---
pt sitting up in chair in room, appears alert o x 4, denies chest pain,. SOB, pain or discomfort, Midline surgical dressing appaers C/D/I, with small amt of dried drainage, surgury resident her to see. sister at bedside
[2019-05-07 08:25] VITALS: BP 115/48
[2019-05-07 10:36] LABS: ALBUMIN 1.4 g/dL (3.4-5.0); CALCIUM 7.6 mg/dL (8.5-10.1); CREATININE 0.5 mg/dL (0.6-1.3); POTASSIUM 3.8 mmol/L (3.5-5.1); TOTAL BILIRUBIN 0.2 mg/dL (<0.1-1.0); TOTAL PROTEIN 4.5 g/dL (6.4-8.2)
--- NOTE | 2019-05-07 11:40 | NUR ---
Pt discharging to [facility] skilled today. Faxed dc orders. Chart copied. Nurse report number is [phone]. Facility to picker and packer at 4pm. Updated Pt's sister
[2019-05-07 11:51] LABS: HEMOGLOBIN 11.7 gm/dL (12.0-15.0); MPV 7.1 fl. (7.2-11.1); RBC 4.05 mil/uL (4.20-5.00); WBC 10.9 thou/uL (4.0-11.0)
[2019-05-07 11:53] LABS: HEMATOCRIT 36.1 % (37.0-47.0); MCH 28.8 pg (26.0-34.0); MCHC 32.4 g/dL (28.0-37.0); NUCLEATED RBCS 0 /100WBC; PLATELET COUNT* 505 thou/uL (150-400); RDW-CV 15.2 % (10.5-14.5)
[2019-05-07 12:00] VITALS: BP 117/50
[2019-05-07 12:20] LABS: ABSOLUTE LYMPHOCYTES 0.7 thou/uL (0.8-5.3); ABSOLUTE MONOCYTES 0.2 thou/uL (0.0-1.2); PLATELET ESTIMATE ADEQUATE
[2019-05-07] MEDS ORDERED: SLOW FE142 MG PO (15:30)
[2019-05-07] MEDS ORDERED: FLEXERIL PO (15:33)
[2019-05-07] MEDS ORDERED: LOVENOX40 MG/0.4 SUBQ (15:35)
[2019-05-07] MEDS ORDERED: MAGNESIUM250 M1 PO (15:37)
[2019-05-07] MEDS ORDERED: PERCOCET 5-3251 EACH PO ×2 (15:39→15:46)
[2019-05-07] MEDS ORDERED: PROTONIX40 M2 PO (15:41)
--- NOTE | 2019-05-07 15:42 | NUR ---
PT TO D/C TO [facility] , REPORT CALLED TO MARIA DOLORES SNEED AT [phone], D/C ORDERS FAXED TO [phone]
[2019-05-07] MEDS ORDERED: ZOFRAN4 MG PO (15:43)
[2019-05-07 15:49] VITALS: BP 117/50
--- NOTE | 2019-05-07 16:20 | NUR ---
PT D/C TO [facility] . w/C ATTENDANT HER TO P/U
--- NOTE | 2019-05-14 13:50 | CON ---
[address] [address] CONSULTATION Name: FÉLIX WYATT Room: [address] IN .R.#: [id number] Admission: 04/23/19 Attend Phys: Augustus Wahl MD Discharge: 05/07/19 Date of : 52 Report #: [id number] THIS REPORT FOR: //name// CC: Augustus Hairstondanicajuliet DATE OF SERVICE: 05/04/2019 HISTORY OF PRESENT ILLNESS: This is a 68-year-old female patient who was evaluated by me for episode of confusion. The patient had GI problems for which after the surgery, she has some confusion she attributes that to the medication, she said she is feeling better this morning. It looks like it was mainly confusion, I will try to talk to the family. It does not look like it was a TIA or any speech difficulty or any focal neurological deficit. REVIEW OF SYSTEMS: Positive for GI problem for which she was managed surgically. She denies any prior history of stroke. She had some anemia and a lung nodule. She feels back to her baseline. During this hospitalization, she has been seen by multiple physicians including GI. She has been on multiple medications. She does have some problem with hypothyroidism and some hypertension and allergies. PAST MEDICAL HISTORY: Negative for this kind of problems. FAMILY HISTORY: Unremarkable. SOCIAL HISTORY: She smokes, but does not drink alcohol. PHYSICAL EXAMINATION: VITAL SIGNS: Her blood pressure is 122/59, respirations 18, pulse is79 and temperature is 98.4. GENERAL: Her examination indicates she was somewhat lethargic, but she was able to follow simple commands. She is otherwise well-developed. NEUROLOGIC: Cranial nerve examination 2-12 looks unremarkable. She was oriented. Her speech looks intact. She does not appear to have any focal neurological deficit on the neuromuscular examination. She has no cerebellar sign. I could not look at the patient's fundus. There is no meningeal sign. There is no carotid bruit in this patient. LABORATORY DATA: White count is 10.2. She did have a CT scan of the head, which was unremarkable. IMPRESSION: I believe this was a postsurgical confusion, which has become better. I will talk to the family and talk to the patient tomorrow and see if we need to do some further workup or whether we should [place] [address] CONSULTATION Name: YOSELINFÉLIX Darius Room: [address]#: [id number] Admission: 04/23/19 Attend Phys: Augustus Wahl MD Discharge: 05/07/19 Date of : 52 Report #: [id number] if she continued to do well. Thank you very much for this referral. <ELECTRONICALLY SIGNED> By: Dario Lara MD 05/14/19 1350 1934 [id number] Lara MD /carlos
== END 2019-05-07 16:15 | DRG 329 ==
LOC: M.ERS 08:29 → M.TBA-ER 10:50 → M.3W 10:50 → M.2W 10:50 → M.3W 12:51 → M.2W 04-25 13:57 → M.3W 04-27 18:31 → M.2W 04-29 20:07 → M.ORTHSURG 05-02 17:20 → M.2W 05-03 14:45
PROVIDERS: Family Medicine; Internal Medicine; Internal Medicine Gastroenterology; Surgery; ADMIT Internal Medicine
DX: K56.699 Other intestinal obstruction unspecified as to partial versus complete obstruction (principal); E43 Unspecified severe protein-calorie malnutrition; J96.01 Acute respiratory failure with hypoxia; J69.0 Pneumonitis due to inhalation of food and vomit; K57.32 Diverticulitis of large intestine without perforation or abscess without bleeding; I10 Essential (primary) hypertension; E78.00 Pure hypercholesterolemia, unspecified; J44.9 Chronic obstructive pulmonary disease, unspecified; K52.9 Noninfective gastroenteritis and colitis, unspecified; E03.9 Hypothyroidism, unspecified; R41.0 Disorientation, unspecified; K57.90 Diverticulosis of intestine, part unspecified, without perforation or abscess without bleeding; F17.290 Nicotine dependence, other tobacco product, uncomplicated; R91.1 Solitary pulmonary nodule; E78.5 Hyperlipidemia, unspecified; R73.9 Hyperglycemia, unspecified; D50.9 Iron deficiency anemia, unspecified; D63.8 Anemia in other chronic diseases classified elsewhere; I80.8 Phlebitis and thrombophlebitis of other sites; E66.01 Morbid (severe) obesity due to excess calories; I48.0 Paroxysmal atrial fibrillation; Z79.899 Other long term (current) drug therapy; Z79.51 Long term (current) use of inhaled steroids; Z88.1 Allergy status to other antibiotic agents; Z68.38 Body mass index [BMI] 38.0-38.9, adult

== ENCOUNTER 2019-05-14 07:58 | Inpatient (IN) | payer OTHER ==
[~2019-05-14] VITALS: Ht 160 cm; Wt 111.6 kg
[~2019-05-14 07:58] MED LIST changes: +ALBUTEROL2.5 MG/0.5 INH; +ALLEGRA ALLERGY60 MG PO; +FLEXERIL PO; +LOVENOX40 MG/0.4 SUBQ; +MAGNESIUM250 M1 PO; +MELOXICAM15 MG PO; +OMEPRAZOLE 20 M20 M1 PO; +PERCOCET 5-3251 EACH PO; +PROAIR HFA8.5 GM INH; +PROTONIX40 M2 PO; +PULMICORT0.25 MG/2 NEB; +SLOW FE142 MG PO; +VITAMIN D22000 UNIT PO; +ZOFRAN4 MG PO
[2019-05-14 08:02] VITALS: BP 122/65
[2019-05-14] MEDS ORDERED: OXYCONTIN10 M1 PO (08:12)
[2019-05-14 08:32] LABS: MCH 28.7 pg (26.0-34.0); MCHC 32.5 g/dL (28.0-37.0); MCV 88.5 fL (80.0-100.0); MPV 6.3 fl. (7.2-11.1); NUCLEATED RBCS 0 /100WBC; PLATELET COUNT* 775 thou/uL (150-400); RBC 4.18 mil/uL (4.20-5.00); RDW-CV 16.1 % (10.5-14.5); WBC 36.6 thou/uL (4.0-11.0)
[2019-05-14 08:46] LABS: ANION GAP 10 mmol/L (7-16); BUN 12 mg/dL (7-18); CALCIUM 7.1 mg/dL (8.5-10.1); CHLORIDE 101 mmol/L (98-107); CO2 25 mmol/L (21-32); CREATININE 0.9 mg/dL (0.6-1.3); GLUCOSE 134 mg/dL (70-99); POTASSIUM 3.7 mmol/L (3.5-5.1); SODIUM 136 mmol/L (136-145)
[2019-05-14 08:56] LABS: ALBUMIN 1.8 g/dL (3.4-5.0); ALKALINE PHOSPHATASE 115 U/L (46-116); CK-MB MASS < 0.5 ng/mL (<0.5-3.6); LIPASE 23 U/L (73-393); MAGNESIUM 1.5 mg/dL (1.8-2.4); NT-PRO BRAIN NAT PEPTIDE 1718 pg/mL (<300); SGOT 20 U/L (15-37); SGPT 26 U/L (30-65); TOTAL BILIRUBIN 0.6 mg/dL (<0.1-1.0); TOTAL PROTEIN 6.5 g/dL (6.4-8.2)
[2019-05-14 09:08] LABS: APTT 25.1 Seconds (25.0-31.3); INR 1.1; PROTIME 11.7 Seconds (9.20-11.50)
[2019-05-14 09:26] LABS: ABSOLUTE EOSINOPHILS 0.4 thou/uL (0.0-0.7); ABSOLUTE LYMPHOCYTES 1.1 thou/uL (0.8-5.3); ABSOLUTE MONOCYTES 1.1 thou/uL (0.0-1.2); PLATELET ESTIMATE INCREASED
[2019-05-14 13:37] VITALS: BP 104/56
--- NOTE | 2019-05-14 15:17 | EKG ---
[place] [address] ELECTROCARDIOGRAM REPORT Name: FÉLIX WYATT Room: [address] ADM IN M.R.#: [id number] Admission: 05/14/19 Attend Phys: Bina Johansen Discharge: Date of : 52 Report #: [id number] THIS REPORT FOR: //name// [facility] ED Test Date: 2019-05-14 Test Time: 08:56:24 Pat Name: FÉLIX WYATT Department: Room: [facility] Gender: F Valuation Consultant: : 1950 Requested By: Luis Alberto Valenzuela Order Number: [id number] MD: León Lee Measurements Intervals [place] Rate: 82 P: NC: QRS: -3 QRSD: 134 T: 0 QT: 447 QTc: 522 Interpretive Statements Sinus rhythm Borderline T abnormalities, anterior leads Compared to ECG 05/05/2019 13:58:13 T-wave abnormality now present Atrial fibrillation no longer present Electronically Signed On 05-14-2019 15:16:41 INSURANCE SALES REPRESENTATIVE by León Lee [email or web address] <ELECTRONICALLY SIGNED> By: León Lee MD, [facility] 05/14/19 1516 0856 [id number] León Lee MD, [facility] /EPI
--- NOTE | 2019-05-14 15:17 | EKG ---
[place] [address] ELECTROCARDIOGRAM REPORT Name: FÉLIX WYATT Room: [address] ADM IN M.R.#: [id number] Admission: 05/14/19 Attend Phys: Bina Johansen Discharge: Date of : 52 Report #: [id number] THIS REPORT FOR: //name// [facility] ED Test Date: 2019-05-14 Test Time: 08:57:40 Pat Name: FÉLIX RAYRP Department: Room: [address] Gender: F Administrator Health Care Facility: TG : 1950 Requested By: Luis Alberto Valenzuela Order Number: [id number] MD: León Lee Measurements Intervals [place] Rate: 83 P: 54 PA: 122 QRS: -1 QRSD: 78 T: 31 QT: 464 QTc: 546 Interpretive Statements Sinus rhythm Low voltage, precordial leads Borderline T abnormalities, anterior leads Prolonged QT interval Compared to ECG 05/05/2019 13:58:13 T-wave abnormality now present Prolonged QT interval now present Atrial fibrillation no longer present Electronically Signed On 05-14-2019 15:16:53 FRAME CATCHER by León Lee [email or web address] <ELECTRONICALLY SIGNED> By: León Lee MD, FACC 05/14/19 1516 0857 0857 León Lee MD, FAC /EPI
--- NOTE | 2019-05-14 15:21 | NUR ---
PT ADMITTED TO TELEMETRY ROOM 209 WITH LI ADMITTING DIAGNOSIS OF PNUEMONIA, COPD EXACERBATION. PT TRACING SR WITH PAC'S/PVC'S. PT C/O LEFT CHEST PAIN UPON INSPIRATION. REFER TO COMPUTER CHARTING FOR FURTHER DETAIL. HOURLY ROUNDING AND FALL PRECAUTIONS IN PLACE FOR PT SAFETY.
[2019-05-14 15:47] LABS: BE -1.1 mmol/L (-2 to +3); PCO2 VENOUS 54.3 mmHg (41.0-51.0); PO2 VENOUS 91.3 mmHg (35.0-45.0)
[2019-05-14 16:20] VITALS: BP 105/69
--- NOTE | 2019-05-14 17:04 | 2DMMODE ---
[place] [address] 2 D/M-MODE ECHOCARDIOGRAM Name: FÉLIX WYATT Room: [address] IN .R.#: [id number] Admission: 05/14/19 Attend Phys: Ben Lafleur Discharge: Date of : 52 Date of Service: 05/14/19 1703 Report #: [id number] THIS REPORT FOR: //name// APPROVED REPORT Study performed: 05/14/2019 15:27:34 EXAM: Comprehensive 2D, Doppler, and color-flow Echocardiogram Patient Location: Bedside BSA: 1.95 HR: 70 bpm BP: 104/56 mmHg Other Information Study Quality: Technically Limited Technically limited study due to lung disease, body habitus. Indications COPD, Cavity Lesions in Lung Volumes Left Atrial Volume (Systole) LA ESV Index: 22.30 mL/m2 Aortic Valve AoV Peak Brennen.: 1.76 m/s AO Peak Gr.: 12.34 mmHg LVOT Max P.30 mmHg AO Mean Gr.: 6.51 mmHg LVOT Mean P.17 mmHg LVOT Max V: 0.76 m/s AO V2 VTI: 29.98 cm LVOT Mean V: 0.50 m/s LVOT V1 VTI: 15.87 cm Mitral Valve E/A Ratio: 0.70 MV Decel. Time: 277.64 ms MV E Max Brennen.: 0.67 m/s MV PHT: 80.52 ms MVA (PHT): 2.73 cm2 TDI E/Lateral E': 7.44 E/Medial E': 9.57 Medial E' Brennen.: 0.07 m/s Lateral E' Brennen.: 0.09 m/[place] [address] 2 D/M-MODE ECHOCARDIOGRAM Name: FÉLIX WYATT Room: [address] IN .R.#: [id number] Admission: 05/14/19 Attend Phys: Ben Lafleur Discharge: Date of : 52 Date of Service: 05/14/19 1703 Report #: [id number] Tricuspid Valve RAP Estimate: 5.00 mmHg TR Peak Gr.: 11.22 mmHg RVSP: 16.22 mmHg PA Pressure: 16.22 mmHg Left Ventricle The left ventricle is normal size. There is normal LV segmental wall motion. There is normal left ventricular wall thickness. Left ventricular systolic function is normal. LVEF is 55-60%. Grade I - abnormal relaxation pattern. Right Ventricle Right ventricle is mild to moderately dilated. The right ventricular systolic function is normal. Atria The left atrium size is normal. Interatrial septum not well visualized. Right atrium is mildly dilated. Aortic Valve Aortic valve is not well visualized. No aortic regurgitation is present. There is no aortic valvular stenosis. Mitral Valve The mitral valve is normal in structure. There is no mitral valve regurgitation noted. No evidence of mitral valve stenosis. Tricuspid Valve The tricuspid valve is normal in structure. Trace tricuspid regurgitation. Pulmonic Valve Pulmonic valve is not well visualized. There is no pulmonic valvular regurgitation. Great Vessels The aortic root is normal in size. IVC is normal in size and collapses >50% with inspiration. Pericardium There is no pericardial effusion. <Conclusion> The left ventricle is normal size. There is normal [place] [address] 2 D/M-MODE ECHOCARDIOGRAM Name: YOSELINFÉLIX Darius Room: [address] IN .R.#: [id number] Admission: 05/14/19 Attend Phys: Ben Lafleur Discharge: Date of : 52 Date of Service: 05/14/191702 Report #: [id number] Left ventricular systolic function is normal. LVEF is 55-60%. Grade I - abnormal relaxation pattern. The left atrium size is normal. Right atrium is mildly dilated. Trace tricuspid regurgitation. IVC is normal in size and collapses >50% with inspiration. <ELECTRONICALLY SIGNED> By: León Lee MD, [facility] 05/14/191702 02 02 León Lee MD, FACC /INF
[2019-05-14 19:40] VITALS: BP 92/50
[2019-05-15] VITALS (34 sets, daily range): BP systolic 77–136; BP diastolic 41–68
--- NOTE | 2019-05-15 03:40 | NUR ---
ASSUMED CARE OF PT AT 1900. PT IS ALERT AND ORIENTED. VSS. PERRLA. PT IS UP WITH 1 ASSIST. PT IS IN SINUS RYTHM ON THE TELEMETRY. PT IS RESTING COMFORTABLY IN BED. RESPIRATIONS ARE EVEN AND NONLABORED. WILL CONTINUE TO MONITOR PT.
[2019-05-15 06:07] LABS: HEMATOCRIT 33.4 % (37.0-47.0); HEMOGLOBIN 10.6 gm/dL (12.0-15.0); MCH 28.4 pg (26.0-34.0); MCHC 31.7 g/dL (28.0-37.0); MCV 89.5 fL (80.0-100.0); MPV 6.5 fl. (7.2-11.1); RBC 3.73 mil/uL (4.20-5.00); WBC 34.1 thou/uL (4.0-11.0)
[2019-05-15 06:16] LABS: ALBUMIN 1.4 g/dL (3.4-5.0); CALCIUM 7.6 mg/dL (8.5-10.1); CREATININE 0.9 mg/dL (0.6-1.3); MAGNESIUM 1.8 mg/dL (1.8-2.4); PHOSPHORUS* 4.9 mg/dL (2.5-4.9); POTASSIUM 4.2 mmol/L (3.5-5.1); TOTAL BILIRUBIN 0.3 mg/dL (<0.1-1.0); TOTAL PROTEIN 5.7 g/dL (6.4-8.2)
--- NOTE | 2019-05-15 14:09 | NUR ---
pt returned from IR and CT more short of air, increased work of breathing. spo2 87% on 4L NC. Increased to 6L NC, RT at bedside giving breathing treatment. spo2 now 93% on 6L NC. Pt was given pain pill when returned from procedure reporting pain 6/[address] Sagastume called, states pt now has pneumothorax and will need a larger chest tube, he states they will be up shortly to get pt for exchange and not to worry about setting up pigtail catheter to atrium at this point. Updated pt and family, continuous pulse ox and vitals milling machine operator gear. RN staying in room with pt.
[2019-05-15 15:09] LABS: CLARITY TURBID; SOURCE THORACENTESIS; TOTAL VOLUME 500 ml
[2019-05-15 15:10] LABS: BF RBC 16382 /mm3; TOTAL CELL COUNT 13215 /mm3
[2019-05-15 15:13] LABS: BF POLYS 90 %
[2019-05-15 19:02] LABS: HEMATOCRIT 28.1 % (37.0-47.0); MCH 28.1 pg (26.0-34.0); MCHC 30.5 g/dL (28.0-37.0); MPV 6.1 fl. (7.2-11.1); NUCLEATED RBCS 0 /100WBC; RBC 3.05 mil/uL (4.20-5.00); RDW-CV 16.8 % (10.5-14.5); WBC 28.1 thou/uL (4.0-11.0)
--- NOTE | 2019-05-15 19:03 | NUR ---
PT RETURNED FROM IR THE SECOND TIME AND WAS MORE LETHARGIC, GLAZED STARING LOOK, PT COULD ANSWER ALL ORIENTATION QUESTIONS APPROPRIATELY, BUT WAS VERY GROGGY. BLOOD PRESSURE NOW LOWER THAN THE ALREADY SOFT PRESSURES OF THIS MORNING, SEE VITAL SIGNS RECORD. PT DENIED NEED TO VOID AND HAD NOT VOIDED PER FAMILY SINCE THIS MORNING, ASKED PT IF SHE HAD VOIDED DURING THE MULTIPLE TIMES SHE WAS OFF THE FLOOR, SHE DENIED. BLADDER SCAN REVEALED ONLY 60 MLS OF URINE. PT HR NOW CONSISTENTLY OVER 90 WELL AND OXYGEN NEEDS INCREASED. PAGED DR RICCI WHO WAS RECRUITING COORDINATOR FOR DR CHANDLER, ORDER TO TRANSFER TO ICU RECEIVED. DR BENZ ON UNIT CAME OVER TO CHECK ON PATIENT. ORDERS FOR FLUIDS, LABS AND CHEST XRAY. BUSTOS INSERTED.
[2019-05-15 19:05] LABS: HEMOGLOBIN 8.6 gm/dL (12.0-15.0); PLATELET COUNT* 318 thou/uL (150-400)
[2019-05-15 19:10] LABS: INR 1.2; PROTIME 12.7 Seconds (9.20-11.50)
[2019-05-15 19:13] LABS: POTASSIUM 3.4 mmol/L (3.5-5.1)
[2019-05-15 19:14] LABS: CALCIUM 5.6 mg/dL (8.5-10.1)
[2019-05-15 19:18] LABS: TOTAL BILIRUBIN 0.2 mg/dL (<0.1-1.0); TOTAL PROTEIN 4.3 g/dL (6.4-8.2)
[2019-05-15 19:42] LABS: ABSOLUTE MONOCYTES 0.8 thou/uL (0.0-1.2); ABSOLUTE NEUTROPHILS 27.3 thou/uL (1.6-8.1)
[2019-05-15 19:44] LABS: ANISOCYTOSIS 1+; OVALOCYTES Occasional; PLATELET ESTIMATE ADEQUATE
[2019-05-15 19:45] LABS: BURR CELLS 1+
[2019-05-15 21:05] LABS: BE -9.4 mmol/L (-2 to +3); PO2 87.6 mmHg (75.0-100.0)
[2019-05-15 21:08] LABS: PCO2 68.9 mmHg (35.0-45.0); pH 7.099 (7.340-7.450)
[2019-05-16] VITALS (76 sets, daily range): BP systolic 68–167; BP diastolic 36–99
--- NOTE | 2019-05-16 | NUR ---
PT. INTUBATED AT 2132. ACIDOTIC, DR. BENZ ORDERED FOR INTUBATION. PT. VERY LETHARGIC UPON ARRIVAL TO ICU, EMERGENT CONSENT OBTAINED. ARTERIAL LINE INSERTED BY DR. BENZ. FAMILY UPDATED. PT. AFIB ON ARRIVAL TO ICU. BUSTOS CATHETER IN PLACE. ORDER OBTAINED FOR LEVOPHED GTT. WILL CONTINUE TO MONITOR.
[2019-05-16 00:49] LABS: BE -7.6 mmol/L (-2 to +3); PO2 109.6 mmHg (75.0-100.0)
[2019-05-16 00:51] LABS: PCO2 61.2 mmHg (35.0-45.0); pH 7.162 (7.340-7.450)
[2019-05-16 04:07] LABS: HEMATOCRIT 34.2 % (37.0-47.0); MCH 28.3 pg (26.0-34.0); MCV 91.2 fL (80.0-100.0); MPV 6.5 fl. (7.2-11.1); RBC 3.75 mil/uL (4.20-5.00); RDW-CV 16.8 % (10.5-14.5); WBC 33.5 thou/uL (4.0-11.0)
[2019-05-16 04:17] LABS: HEMOGLOBIN 10.6 gm/dL (12.0-15.0)
[2019-05-16 04:29] LABS: BE -7.8 mmol/L (-2 to +3); PO2 98.6 mmHg (75.0-100.0)
[2019-05-16 04:30] LABS: pH 7.197 (7.340-7.450)
[2019-05-16 04:31] LABS: PCO2 55.1 mmHg (35.0-45.0)
[2019-05-16 04:35] LABS: ALBUMIN 1.3 g/dL (3.4-5.0); CALCIUM 7.4 mg/dL (8.5-10.1); CREATININE 1.1 mg/dL (0.6-1.3); MAGNESIUM 1.8 mg/dL (1.8-2.4); TOTAL BILIRUBIN 0.2 mg/dL (<0.1-1.0); TOTAL PROTEIN 5.7 g/dL (6.4-8.2)
[2019-05-16 04:59] LABS: POTASSIUM 4.9 mmol/L (3.5-5.1)
--- NOTE | 2019-05-16 05:21 | NUR ---
PT. EXTUBATED SELF AT 0230. REINTUBATED AT 0251. PRECEDEX GTT. RESTRAINTS APPLIED. ORDER OBTAINED FROM DR. BENZ. OG AND ET TUBE PLACED, XRAY CONFIRMED FOR PLACEMENT. WILL CONTINUE TO MONITOR.
--- NOTE | 2019-05-16 07:30 | NUR ---
ASSUMED CARE OF PATIENT FROM ZACH HORNE.
[2019-05-16 08:17] LABS: BE -6.7 mmol/L (-2 to +3); PCO2 47.2 mmHg (35.0-45.0)
[2019-05-16 08:20] LABS: pH 7.254 (7.340-7.450)
--- NOTE | 2019-05-16 08:29 | CON ---
[address] [address] CONSULTATION Name: YOSELINFÉLIX L Room: [address] IN M.R.#: [id number] Admission: 05/14/19 Attend Phys: Bina Johansen Discharge: Date of : 52 Report #: [id number] THIS REPORT FOR: //name// CC: Ben Lafleur Richard Odom DATE OF SERVICE: 05/15/2019 ATTENDING PHYSICIAN: Ben Lafleur MD REASON FOR EVALUATION: Complicated respiratory tract/thoracic infection and suspected empyema versus pulmonary abscess with marked leukocytosis. HISTORY OF PRESENT ILLNESS: Chart reviewed, patient examined. This is a 68-year-old woman with history of COPD. Of note was hospitalized recently with severe diverticulitis. She did undergo operative partial colonic resection of the strictured area. Path confirmed a benign process, had been recovering in a facility undergoing rehabilitation; although, her abdominal-related complaints had improved, did develop respiratory tract signs and symptoms with progressive dyspnea, cough that was minimally productive, was reevaluated including imaging on return to the ER, was found to be markedly leukocytotic with a count of 36.6. Followup CT of the chest, there is a question of cavitary lesion involving the left upper lung measuring 32 x 18 x 30 mm, did have associated pneumonitis at the bases as well. She underwent attempted thoracentesis at the bedside, which was unsuccessful, scheduled to undergo procedure via the interventional radiologist. She is not overtly toxic, does describe some degree of discomfort. She had some low-grade temperature elevations on admission. Hemodynamically, she is mildly labile with systolic blood pressures in the 90s. She is lucid. She was started empirically on antibiotics, specifically piperacillin and tazobactam as well as vancomycin parenterally. ALLERGIES: ERYTHROMYCIN. CURRENT MEDICATIONS: Include enoxaparin, vancomycin, oxycodone, ipratropium and albuterol inhaler and Zosyn. PAST MEDICAL HISTORY: As above noted recent history of diverticulitis, partial colonic resection, COPD, high cholesterol, hypertension. SOCIAL HISTORY: She is known to vape, but no illicit drug use. No ethanol. FAMILY HISTORY: Noncontributory. REVIEW OF SYSTEMS: Otherwise, unremarkable 10-point review of systems with the exception [place] [address] CONSULTATION Name: YOSELINFÉLIX Darius Room: [address] IN [facility]#: [id number] Admission: 05/14/19 Attend Phys: Bina Johansen Discharge: Date of : 52 Report #: [id number] PHYSICAL EXAMINATION: GENERAL: Alert, cooperative, appropriate. She is somewhat tentative. She is oriented, sfxg-bt-ngtdzarm distress, slightly undernourished. VITAL SIGNS: Temperature 97.4, pulse 65, respirations 16, blood pressure 95/51. SKIN: Warm, dry, no rashes. HEENT: Otherwise, unremarkable. Normocephalic. Extraocular muscles intact. NECK: Supple. LUNGS: Diminished breath sounds. She has got some scattered coarse breath sounds at the bases on the left side. HEART: Regular. I do not appreciate a murmur. ABDOMEN: Slightly tender. There are no overt peritoneal signs. Dehiscence at the distal aspect of the incision, which is being packed. GENITOURINARY AND RECTAL: Deferred. LABORATORY DATA: Chest x-ray confirmed left basilar opacities, left-sided cavitary lesion on CT. Blood cultures sterile thus far. Prealbumin low at 5.5. Electrolytes: Sodium 138, potassium 4.2, chloride 105, bicarbonate 25, anion gap of 8, BUN and creatinine 19 and 0.9, albumin of 1.4, total protein 5.7, estimated GFR of 62. CBC: Initial white count of 36.6, repeat was 34.1; H and H 10.6 and 33.4, platelets of 447 that is down from 775, presumed acute phase reactant. Sed rate of 43. Lactic acid 1.1. Troponin less than 0.06. ASSESSMENT AND PLAN: Marked leukocytosis. The patient had a recent surgery, partial colonic resection for severe diverticulitis, and has additional pulmonary-related signs and symptoms including radiograph evidence of cavitary lesion. Agree with trying to assess the nature of that via percutaneous approach. We will await IR findings. Continue empiric therapy, should give reasonable coverage for both the abdomen as well as the lung. At this point, she is not overtly toxic. We will monitor expectantly. Add incentive spirometry. Discussed with the patient and her daughter. <ELECTRONICALLY SIGNED> By: Kamaljit Hernandez MD 05/16/19 0829 [id number] [id number] Hernandez MD /nt
--- NOTE | 2019-05-16 10:10 | NUR ---
FLUSHED CT WITH 10 ML FLUID; ASPIRATED 3 ML BACK OUT AND REATTACHED TO SUCTION
[2019-05-16 11:06] LABS: BODY FLUID LDH 2085 IU/L (())
[2019-05-16 15:59] LABS: BE -4.9 mmol/L (-2 to +3); PCO2 41.4 mmHg (35.0-45.0); PO2 84.6 mmHg (75.0-100.0)
[2019-05-16 17:42] LABS: ABSOLUTE BASOPHILS 0.1 thou/uL (0.0-0.2); ABSOLUTE LYMPHOCYTES 0.3 thou/uL (0.8-5.3); ABSOLUTE MONOCYTES 0.9 thou/uL (0.0-1.2); ABSOLUTE NEUTROPHILS 20.2 thou/uL (1.6-8.1); BASOPHILS 0.3 %; HEMATOCRIT 34.4 % (37.0-47.0); HEMOGLOBIN 10.9 gm/dL (12.0-15.0); LYMPHOCYTES 1.3 %; MCHC 31.6 g/dL (28.0-37.0); MCV 88.8 fL (80.0-100.0); MONOCYTES 4.3 %; MPV 6.4 fl. (7.2-11.1); NUCLEATED RBCS 0 /100WBC; POLYS 94.1 %; RBC 3.87 mil/uL (4.20-5.00); RDW-CV 16.3 % (10.5-14.5); WBC 21.5 thou/uL (4.0-11.0)
[2019-05-16 17:49] LABS: PLATELET COUNT* 329 thou/uL (150-400)
[2019-05-16 17:57] LABS: ALBUMIN 1.2 g/dL (3.4-5.0); CALCIUM 7.7 mg/dL (8.5-10.1); CREATININE 0.9 mg/dL (0.6-1.3); POTASSIUM 4.4 mmol/L (3.5-5.1); TOTAL BILIRUBIN 0.3 mg/dL (<0.1-1.0); TOTAL PROTEIN 5.6 g/dL (6.4-8.2)
--- NOTE | 2019-05-16 18:58 | NUR ---
ATTEMPTED TO WEAN LEVO OFF BUT UNABLE TO. SEE TITRATIONS. ART LINE NO LONGER MARISA BACK BLOOD OR WAS CORRELATING TO CUFF BP. REMOVED. UPDATED FAMILY REQUESTED. STARTED FENTANYL GTT FOR PAIN. WEANED DOWN PRECEDEX GTT.
[2019-05-17] VITALS (63 sets, daily range): BP systolic 89–135; BP diastolic 34–77
[2019-05-17 05:45] LABS: BE -4.7 mmol/L (-2 to +3); PCO2 38.4 mmHg (35.0-45.0); pH 7.345 (7.340-7.450)
[2019-05-17 05:46] LABS: HEMATOCRIT 31.4 % (37.0-47.0); HEMOGLOBIN 10.2 gm/dL (12.0-15.0); MCH 28.6 pg (26.0-34.0); MCHC 32.5 g/dL (28.0-37.0); MCV 88.1 fL (80.0-100.0); MPV 6.7 fl. (7.2-11.1); RBC 3.57 mil/uL (4.20-5.00); RDW-CV 16.3 % (10.5-14.5); WBC 13.9 thou/uL (4.0-11.0)
[2019-05-17 05:55] LABS: PO2 126.5 mmHg (75.0-100.0)
[2019-05-17 05:59] LABS: CALCIUM 7.3 mg/dL (8.5-10.1); CREATININE 0.8 mg/dL (0.6-1.3); MAGNESIUM 1.8 mg/dL (1.8-2.4); PHOSPHORUS* 2.3 mg/dL (2.5-4.9); POTASSIUM 4.3 mmol/L (3.5-5.1); TOTAL BILIRUBIN 0.3 mg/dL (<0.1-1.0); TOTAL PROTEIN 5.1 g/dL (6.4-8.2)
--- NOTE | 2019-05-17 10:30 | NUR ---
PT.ON VENT. NO VISITORS AT BEDSIDE. WAS AT [facility] FOR SNF STAY AFTER ABDOMINAL SURGERY. HAD DEHISENCE OF WOUND AT [facility], SEPTIC,HAS CHEST TUBE DUE TO PNEUMOTHORAX, COCCYX WOUNDS AND ON TUBE FEEDINGS. CM LEFT MESSAGE AT [facility] FOR ADMISSIONS TO CALL CM BACK.
[2019-05-17 12:46] LABS: SOURCE THORACENTESIS
--- NOTE | 2019-05-17 14:50 | NUR ---
WOUND NURSE: PATIENT SEEN AND ADDRESSED L&R SACRAL SKIN LESIONS: BOTHER 1.5 X 1.0 X 0.1 CM, PARTIAL THICKNESS TISSUE LOSS, RED, NONNGRANULATING TISSUE IN THE WOUND BEDS. SMALL AMOUNT OF SEROUSANGUINOUS DRAINAGE. CLEANSED WITH SOAP AND WATER, RINSED WITH WATER, PATTED DRY. APPLIED SKIN PREP TO PERIWOUNDS; APPLIED EXUDERM LP TO EACH WOUND BED, THEN SECURED IN PLACE USING SURESITE TRANSPARENT DRESSING. LEFT WRIST IS EDEMATOUS WITH ECCHYMOSIS AND WEEPING LARGE AMOUNTS OF SEROUS DRAINAGE. CLEANSED WITH WOUND CLEANSER AND GAUZE, APPLIED ABD THEN WRAPPED WITH KERLEX ROLL GAUZE, THEN SECURED WITH TAPE.
--- NOTE | 2019-05-17 18:18 | NUR ---
PT REMAINS INTUBATED PER ORDERED SETTINGS.PT ABLE TO FOLLOW COMMANDS AND RESPOND TO TOUCH AND NAME.SHEEP KILLER IN PLACE.NO C/O PAIN.IV FLUIDS INFUSING PER ORDERS. IV ANTIBIOTICS GIVEN.CHEST TUBE SECURE AND PATENT ON LEFT SIDE.CHEST TUBE HAS A LEAK- DR. DOAN SAW PT AT BEDSIDE AND KNOWS ABOUT THE LEAK-NO NEW ORDERS RECEIVED.OG SECURE AND PATENT @ 68.TUBE FEEDING INFUSING @ GOAL OF 60ML/HR.WOUND CARE NURSE SAW PT AND DRESSED WOUNDS ON BUTTOCKS.FAMILY SPOKE WITH DR. CHANDLER AND INFORMED OF PLAN OF CARE AND COMMUNICATES UNDERSTANDING.Q2 HOUR POSITION CHANGES COMPLETED.WILL CONTINUE TO MONITOR FOR DURATION OF SHIFT.
[2019-05-18] VITALS (85 sets, daily range): BP systolic 54–174; BP diastolic 33–104
--- NOTE | 2019-05-18 02:09 | NUR ---
PT. FEBRILE, TEMP OF 100.0, NOW UP TO 102.0. TYLENOL GIVEN THROUGH OG TUBE. PT. TO BE MOVED FROM ROOM 8 TO ROOM 2 IN ORDER TO BE CLOSER TO NURSING STATION AND ABILITY FOR NURSES TO HEAR VENTILATOR ALARMS.
--- NOTE | 2019-05-18 04:12 | NUR ---
PT. TRANSFERRED TO ROOM 2, ALL PERSONAL BELONGINGS TRANSFERRED TO ROOM 2. PT. IS NOTED TO BE GUPPY BREATHING, AROUSABLE TO STIMULI, PT. GETS VERY RESTLESS/ANXIOUS WHEN STIMULATED AND TAKES 15 MIN TO 1 HOUR TO CALM DOWN. BATH COMPLETED, ALL LINENS CHANGED. WILL CONTINUE TO MONITOR.
--- NOTE | 2019-05-18 05:13 | NUR ---
PT. HAS BEEN RESTLESS MOST OF SHIFT. PRECEDEX GTT AND FENTANYL GTT'S INCREASED. CONSTANTLY TRYING TO PULL HER ARMS UP, RESTRAINTS BILAT SOFT WRIST REMAIN IN PLACE. PT. APPEARS TO BE COMFORTABLY SEDATED AT THIS TIME. PT. MOSTLY AFIB BUT HAS PERIODS OF SINUS RHYTHM. BECOMING MORE TACHYCARDIC. PRECEDEX HAS BEEN HIGH 1.4MCG/KG/HR AND FENTANYL HIGH 100MCG/HR. TUBE FEEDINGS AT GOAL, MINIMAL RESIDUALS. ARMS REMAIN EDEMATOUS AND WEEPING. DRESSINGS ON LEFT ARM CHANGED. COMPLETE BED BATH DONE, LINENS CHANGED. WILL CONTINUE TO MONITOR.
[2019-05-18 05:36] LABS: BE -1.3 mmol/L (-2 to +3); PCO2 42.8 mmHg (35.0-45.0); PO2 101.8 mmHg (75.0-100.0); pH 7.367 (7.340-7.450)
[2019-05-18 07:08] LABS: HEMATOCRIT 32.7 % (37.0-47.0); HEMOGLOBIN 10.4 gm/dL (12.0-15.0); MCH 28.6 pg (26.0-34.0); MCHC 31.9 g/dL (28.0-37.0); MCV 89.7 fL (80.0-100.0); MPV 7.4 fl. (7.2-11.1); RBC 3.64 mil/uL (4.20-5.00); RDW-CV 16.5 % (10.5-14.5); WBC 10.8 thou/uL (4.0-11.0)
[2019-05-18 07:17] LABS: ALBUMIN 1.1 g/dL (3.4-5.0); CALCIUM 6.8 mg/dL (8.5-10.1); CREATININE 0.8 mg/dL (0.6-1.3); MAGNESIUM 1.8 mg/dL (1.8-2.4); PHOSPHORUS* 1.9 mg/dL (2.5-4.9); POTASSIUM 4.3 mmol/L (3.5-5.1); TOTAL BILIRUBIN 0.2 mg/dL (<0.1-1.0); TOTAL PROTEIN 4.4 g/dL (6.4-8.2)
--- NOTE | 2019-05-18 11:00 | NUR ---
PT.OFF UNIT FOR PROCEDURE. [facility] CALLED AND SPOKE WITH RI[facility]/JOCELINE WHERE PT.WAS FOR SNF STAY. UPDATED ON PT.S CONDITION.
[2019-05-18 17:52] LABS: BE -1.5 mmol/L (-2 to +3); PCO2 VENOUS 49.9 mmHg (41.0-51.0); PO2 VENOUS 58.8 mmHg (35.0-45.0)
[2019-05-18 18:08] LABS: CALCIUM 6.3 mg/dL (8.5-10.1); CREATININE 0.7 mg/dL (0.6-1.3); POTASSIUM 3.6 mmol/L (3.5-5.1)
--- NOTE | 2019-05-18 18:30 | NUR ---
VSS.WEB CONTENT PRODUCER IN PLACE. PT REMAINS INTUBATED PER ORDERED SETTINGS.NEW CHEST TUBE INSERTED IN IR THIS AM WITH ADEQUATE OUTPUT-INSERTION SITE REINFORCED WITH PRESSURE TAPE.NO APPARENT PAIN.RIGHT PICC PATENT AND SECURE WITH SEADTION AND ANTIBIOTICS INFUSING PER ORDERS.PT RECEIEVED 40MG OF LASIX PER ORDERS WITH ADEQUATE OUTPUT.SURGERY CHANGED ABDOMINAL INCISION DRESSING THIS AM.FAMILY INFORMED OF PLAN OF CARE AND COMMUNICATES UNDERSTANDING.PT HAD MIRALAX AND SUPPOSITORY THIS AM WITH LARGE LOOSE BOWEL MOVEMENT.COMPLETE BED BATH GIVEN.HOURLY ROUNDING COMPLETED FOR PT SAFETY.Q2 HOUR POSITION CHANGES COMPLETED.WILL CONTINUE TO MONITOR FOR DURATION OF SHIFT.
[2019-05-19] VITALS (132 sets, daily range): BP systolic 54–219; BP diastolic 35–149
[2019-05-19 03:49] LABS: HEMATOCRIT 27.3 % (37.0-47.0); HEMOGLOBIN 9.1 gm/dL (12.0-15.0); MCH 29.4 pg (26.0-34.0); MCHC 33.2 g/dL (28.0-37.0); MCV 88.6 fL (80.0-100.0); MPV 7.1 fl. (7.2-11.1); RBC 3.08 mil/uL (4.20-5.00); RDW-CV 16.4 % (10.5-14.5); WBC 6.5 thou/uL (4.0-11.0)
[2019-05-19 04:03] LABS: CALCIUM 6.7 mg/dL (8.5-10.1); CREATININE 0.7 mg/dL (0.6-1.3); MAGNESIUM 1.9 mg/dL (1.8-2.4); PHOSPHORUS* 1.9 mg/dL (2.5-4.9); POTASSIUM 3.5 mmol/L (3.5-5.1)
[2019-05-19 06:17] LABS: BE 0.2 mmol/L (-2 to +3); PCO2 45.4 mmHg (35.0-45.0); PO2 96.2 mmHg (75.0-100.0)
--- NOTE | 2019-05-19 06:38 | NUR ---
SLOW PROGRESSION TOWARDS GOALS, LOW GRADE TEMP 99.9 ORAL, FAN IN USE TO ASSIST WITH TEMP MANAGEMENT, NO CHANGE IN VENTILATOR SETTINGS THIS SHIFT, CONTINUES WITH VERSED 1MG/HR VIA INFUSION PUMP, PRECEDEX 0.8MCG/KG/HR VIA INFUSION PUMP AND FENTANYL GTT 100MCG/HR FOR SEDATION, PT RESTING QUIETLY WITH EYES CLOSED EXCEPT WITH ANY TYPE OF TACTILE STIMULATION ESPECIALLY WITH REPOSITIONING, INCREASED ANXIETY, INCREASED RESP, INCREASED HR, CONTINUOUS ARM MOVEMENT, ATTEMPTING TO SIT UP IN BED WITH TACTILE STIMULI, INCREASED PEAK PRESSURE ALSO NOTED WITH CARES AND POSITIONING ON RIGHT SIDE, OG PATENT JEVITY 1.5 TUBE FEEDING AT 60CC/HR, GASTRIC RESIDUALS =<5CC, BUSTOS LEAKING X1, TUBING SECURED VIA STAT LOCK TWISTED, NO FURTHER URINE LEAKAGE NOTED AFTER BUSTOS TUBING REPOSITIONING, AFIB TRACING PROMOTIONAL ADVERTISING ASSISTANT, HR ONE TEENS UP TO 13O'S WITH CARES, 20CC SEROUSANGUENOUS DRAINAGE VIA ATRIUM/PLEURAVAC, 650CC YELLOW URINE OUT VIA BUSTOS CATHETER, BED IN LOW AND LOCKED POSITON, SAFETY MAINTAINED.
[2019-05-19 12:25] LABS: BE 5.5 mmol/L (-2 to +3); PO2 79.9 mmHg (75.0-100.0); pH 7.369 (7.340-7.450)
[2019-05-19 12:27] LABS: PCO2 56.6 mmHg (35.0-45.0)
--- NOTE | 2019-05-19 17:33 | NUR ---
PT CARE ASSUMED AFTER REPORT. PT WITH STRIDOR AND COARSE LUNG SOUNDS UPON ASSESSMENT. DR TODD NOTIFIED AND ASSESSED THE PT. NEW CHEST TUBE PLACED BY DR TODD AND THE OLD ONE REMOVED. NEW IJ PLACED AFTER PREVIOUS PICC LINE WAS DISPLACED DURING CHEST TUBE PLACEMENT. CHEST TUBE DRESSING DRY AND INTACT. DRAINING BLOODY DRAINAGE INTO THE ATRIUM. 325ML OUT TODAY. PT STARTED ON AMIODERONE GTT AFTER AFIB/RVR THIS AM. HR NOW IN THE 110'S. BUSTOS TO DD. 1450 OUT. PT SEDATED ON VENTILATOR. NO S/S OF PAIN.
[2019-05-20] VITALS (54 sets, daily range): BP systolic 86–160; BP diastolic 48–96
[2019-05-20 03:45] LABS: pH 7.386 (7.340-7.450)
[2019-05-20 03:48] LABS: PCO2 56.4 mmHg (35.0-45.0)
[2019-05-20 04:41] LABS: HEMATOCRIT 24.3 % (37.0-47.0); HEMOGLOBIN 7.9 gm/dL (12.0-15.0); MCH 28.5 pg (26.0-34.0); MCHC 32.3 g/dL (28.0-37.0); MCV 88.3 fL (80.0-100.0); MPV 7.9 fl. (7.2-11.1); RBC 2.76 mil/uL (4.20-5.00); RDW-CV 16.2 % (10.5-14.5); WBC 10.1 thou/uL (4.0-11.0)
[2019-05-20 04:57] LABS: CALCIUM 7.2 mg/dL (8.5-10.1); CREATININE 1.1 mg/dL (0.6-1.3); MAGNESIUM 1.5 mg/dL (1.8-2.4); PHOSPHORUS* 3.3 mg/dL (2.5-4.9); POTASSIUM 3.4 mmol/L (3.5-5.1)
--- NOTE | 2019-05-20 05:07 | NUR ---
Pt's BP variable during 1st few hours of shift. Levophed titrated from 2.9 up to 8, then down to 6 mcg/min. Noted increased Sub Q air to anterior chest. Called Dr. Kim to update on status; orders received. Dr. Kim came in at approx 0100, then attempted to adjust chest tube which was found to be kinked and clotted. New chest tube (32 Fr) placed in place of old tube (28 Fr). Pt's TF residuals 216. TF held, then resumed at reduced rate 40 ml/hr. After new chest tube placed and CXR taken, Dr. Kim ordered for OG to be placed on LIS for 2 hours to decompress stomach. OGT currently clamped following 200 ml out while on suction. Dr. Kim ordered for Lovenox to be discontinued due to bruising and bleeding with previous chest tube insertion on 05/19/19. Remains on midazolam, fentanyl, and precedex gtts for sedation; levophed gtt for pressure support; and amiodarone gtt for a-fib. Wekayley noted from BUE. Diuresed well with pm dose furosemide. Will continue to monitor.
--- NOTE | 2019-05-20 10:00 | NUR ---
ICU ROUNDS: POTENTIAL TRANSFER TO [facility], PENDING READING CT OF CHEST, BEING DONE AT THIS TIME. FAMILY HERE AND AWARE.
--- NOTE | 2019-05-20 10:25 | CON ---
[address] [address] CONSULTATION Name: FÉLIX WYATT Room: [address] IN M.R.#: [id number] Admission: 05/14/19 Attend Phys: Bina Johansen Discharge: Date of : 52 Report #: [id number] THIS REPORT FOR: //name// CC: Ben Odom INDICATION: New-onset atrial fibrillation with rapid ventricular response rate. HISTORY OF PRESENT ILLNESS: The patient is a 68-year-old white female who was readmitted to the hospital on 05/14/2019 after a brief stay in rehabilitation with pneumonia and pleural effusion. The patient is intubated and septic. The patient was hospitalized earlier in April with a colonic obstruction due to diverticulitis requiring sigmoidectomy. During this hospitalization, the patient developed atrial fibrillation with rapid ventricular response rate. The patient is currently intubated and no history is obtainable from the patient. I do not see prior history of cardiac issues based on review of available records. Echocardiogram shows normal LV systolic function with grade 1 diastolic dysfunction. PAST MEDICAL HISTORY: 1. Recent sigmoid colectomy due to diverticulitis. 2. Pneumonia with acute respiratory failure. 3. COPD. 4. Hypertension. 5. Hyperlipidemia. 6. History of tobacco use. ALLERGIES: ERYTHROMYCIN. CURRENT MEDICATIONS: Tylenol p.r.n., albumin 25 grams b.i.d., vitamin C 2000 mg daily, Pulmicort 0.5 mg b.i.d., Precedex as directed, Lovenox 40 mg subQ daily, Pepcid 20 mg IV b.i.d., Fentanyl as directed, folate 1 mg daily, Combivent inhaler q. 4 hours, Lasix 40 mg IV b.i.d., Versed as directed, Levophed as directed, oxycodone IR 5 mg q. 6 hours p.r.n., Zosyn IV MiraLax 17 grams per tube b.i.d., vancomycin. FAMILY HISTORY: Noncontributory per available records. PHYSICAL EXAMINATION: VITAL SIGNS: Blood pressure 125/65, pulse is in the 120s and irregular. GENERAL: This is an elderly female who is intubated and unresponsive. HEENT: Head is normocephalic, atraumatic. NECK: Shows no obvious jugular venous distention. CHEST: Reveals coarse breath sounds bilaterally. CARDIAC: Reveals a tachycardic rate with a regular rhythm. I do not appreciate obvious gallop or murmur. ABDOMEN: Reveals protuberant abdomen, [place] [address] CONSULTATION Name: FÉLIX WYATT Room: [address] IN .R.#: [id number] Admission: 05/14/19 Attend Phys: Bina Johansen Discharge: Date of : 52 Report #: [id number] EXTREMITIES: Show 3-4+ edema to the upper thighs bilaterally. SKIN: Shows multiple ecchymoses but appears dry. LABORATORY DATA: Reviewed. Sodium 144, potassium 3.5, chloride 108, bicarbonate 30, BUN 13, creatinine 0.7, serum glucose 179. Chest x-ray shows left-sided thoracostomy tube in place with a residual apical pneumothorax. Right PICC line in place. Lung bateman appear relatively clear. IMPRESSION AND RECOMMENDATIONS: 1. New-onset atrial fibrillation with rapid ventricular response rate. We will give amiodarone bolus and drip in effort to resume sinus rhythm. Recommend increasing Lovenox 200 mg subQ b.i.d. for anticoagulation. 2. Acute respiratory failure, per Pulmonology. 3. Gross volume overload. Agree with IV Lasix as ordered. 4. Chronic obstructive pulmonary disease per Pulmonology. <ELECTRONICALLY SIGNED> By: León Lee MD, FACC 05/20/19 1025 1234 Micshabnam Lee MD, FACC /nt
--- NOTE | 2019-05-20 12:06 | PATH ---
[address] [address] PATHOLOGY RPT PROCEDURE Name: FÉLIX WYATT Room: [address] IN [facility]#: [id number] Admission: 05/14/19 Date of : 52 Discharge: Report #: [id number] Path Case #: [id number] Note [facility] Accession Number: [id number] TESTS RESULT FLAG UNITS REF RANGE LAB Clinician Provided Cytology Information No. of containers..01 Other (Miscellaneous) Source: LEFT PLEURAL FLUID DIAGNOSIS: 02 LEFT PLEURAL FLUID NEGATIVE FOR MALIGNANT CELLS. HEAVY, PREDOMINANTLY ACUTE INFLAMMATION. CELLULAR DEGENERATION IS PRESENT. THIS INTERPRETATION INCLUDES EVALUATION OF A CELL BLOCK. Signed out by: 02 Mark Ferrara MD, Pathologist NPI- [id number] Performed by: 01 Diamond Ramon, Light Truck Driver ([facility]) Gross description: 01 45ML, DARK DAVIS CLOUDY, 1 TP /LCS 05/17/2019 1632 Local FLAG LEGEND: L-Low Normal,H-High Normal,LL-Alert Low,HH-Alert High <-Panic Low,>-Panic High,A-Abnormal,AA-Critical Abnormal Performed at: [address] [place] [address] Bud Mcmillan MD, [address] [address] Mark Ferrara MD, Specimen Comment: A courtesy copy of this report has been sent to [phone] Specimen Comment: Report sent to Performed at: [address], [place], [place] [id number] MD Bud Mcmillan MD Phone: [phone]
--- NOTE | 2019-05-20 14:28 | NUR ---
WAS ASKED TO ARRANGE TRANSFER TO [facility], CALL PLACED TO MAYURI/NURSING EDUCATION SPECIALIST AT [facility]. CLARIFIED WITH DR CHANDLER, HE SPOKE WITH DRS THERE INCLUDING MYAH, AINSLEY, KATE AND ENRIQUE. UPDATED MAYURI WITH THAT INFO AND FAXED FACE SHEET. DISCUSSED WITH NEDRA IRVING. GAVE HER AMBULANCE AND COBRA FORM TO COMPLETE. MAYURI TO CONTACT ICU TO ARRANGE TRANSFER
--- NOTE | 2019-05-20 16:59 | NUR ---
PT TRANSFERED TO [facility] ROOM 236. REPORT GIVEN TO NEDRA PHILLIPS. PT FAMILY MEMBERS , INCLUDING VENUS, NOTIFIED OF TRANSFER AND AGREE TO IT. PT TRANSPORTED PER EMS.
--- NOTE | 2019-05-20 18:05 | PROC ---
[address] [address] PROCEDURE REPORT Name: YOSELINFÉLIX Darius Room: [address] IN M.R.#: [id number] Admission: 05/14/19 Attend Phys: Bina Johansen Discharge: 05/20/19 Date of : 52 Report #: [id number] THIS REPORT FOR: //name// CC: Ben Odom DATE OF SERVICE: 05/19/2019 PROCEDURE PERFORMED BY: Nuris Walsh MD PROCEDURE: Left chest tube placement. INDICATION FOR PROCEDURE: Left tension pneumothorax. ANESTHESIA: The patient is intubated and is on Precedex, Versed and fentanyl. The procedure was done under emergent situation, medical necessity, but I did discuss the procedure after it is done with her sister which was in complete agreement with the procedure. DESCRIPTION OF PROCEDURE: Timeout was called. The left chest area was prepped and draped in sterile fashion. A 2-cm incision was placed in the midaxillary fifth intercostal space, then with a [place], pleural space was entered. Chest tube was placed without a trocar, gush of fluid and air came out. It was connected to suction. Pleural variation was noted. Air leak was noted. Chest tube was secured with silk 0 and then with 3-0 the remainder of small incision was sutured. Vaseline gauze was placed around the chest tube. Chest tube was secured. Stat portable chest x-ray was performed. Chest tube is in good position. The patient tolerated the procedure well. There were no obvious complications. <ELECTRONICALLY SIGNED> By: Nuris Walhs MD 05/20/19 1805 0956 [id number] Walsh MD /nt
--- NOTE | 2019-05-20 18:05 | PROC ---
[address] [address] PROCEDURE REPORT Name: FÉLIX WYATT Room: [address] IN M.R.#: [id number] Admission: 05/14/19 Attend Phys: Bina Johansen Discharge: 05/20/19 Date of : 52 Report #: [id number] THIS REPORT FOR: //name// CC: Ben Odom DATE OF SERVICE: 05/20/2019 PROCEDURE: Chest tube placement. PROCEDURE PERFORMED BY: Nuris Walsh MD INDICATION FOR PROCEDURE: Pneumothorax. ANESTHESIA: The patient is on the ventilator and is on fentanyl drip, Precedex drip and Versed. DESCRIPTION OF PROCEDURE: I was called by RN that the patient's subcutaneous emphysema is worsening. I examined the patient, removed the dressing and it appeared that the previous chest tube had blood clot in there and it was obstructed. The left chest was prepped and draped in sterile fashion. Sutures were removed from the chest tube placed yesterday morning. Blood clot was noted in chest tube lumen. It was also kinked. That chest tube was removed and a chest tube size 32 was placed. Pleural variation in Pleur-evac was noted. pleural variation was seen in the Pleur-evac. I did not make another incision. I did use the previous incision, which was made during the chest tube placement on 05/19/2019. A pursestring suture was placed with silk 0. Vaseline gauze was placed around the chest tube, then 4 x 4, then chest tube was taped. Pleural variation was noted. Air leak was noted. The patient tolerated the procedure well. Chest x-ray was performed, which did show the chest tube is in good position. The patient is stable on the ventilator. COMPLICATIONS: None. <ELECTRONICALLY SIGNED> By: Nuris Walsh MD 05/20/19 1805 0327 [id number] Walsh MD /nt
[2019-05-21 23:08] LABS: HBsAG-EMPLOYEE EXPOSURE Negative (Negative)
== END 2019-05-20 16:40 | disposition short-term general hospital (02) | DRG 870 ==
LOC: M.ERS 07:58 → M.TBA-ER 11:18 → M.ICU 11:18 → M.2W 13:47 → M.ICU 05-15 19:37
PROVIDERS: Family Medicine; Internal Medicine Pulmonary Disease; Radiology Diagnostic Radiology; ADMIT Internal Medicine
PROC: B548ZZA Ultrasonography of Superior Vena Cava, Guidance (ICD-10-PCS; principal; 2019-05-15)
PROC: B5181ZA Fluoroscopy of Superior Vena Cava using Low Osmolar Contrast, Guidance (ICD-10-PCS; principal; 2019-05-15)
PROC: 5A1955Z Respiratory Ventilation, Greater than 96 Consecutive Hours (ICD-10-PCS; principal; 2019-05-15)
PROC: 0WJB3ZZ Inspection of Left Pleural Cavity, Percutaneous Approach (ICD-10-PCS; principal; 2019-05-15)
PROC: 0W9B30Z Drainage of Left Pleural Cavity with Drainage Device, Percutaneous Approach (ICD-10-PCS; principal; 2019-05-15)
PROC: 0W9B3ZZ Drainage of Left Pleural Cavity, Percutaneous Approach (ICD-10-PCS; principal; 2019-05-15)
PROC: 0BH17EZ Insertion of Endotracheal Airway into Trachea, Via Natural or Artificial Opening (ICD-10-PCS; principal; 2019-05-15)
PROC: 03HY32Z Insertion of Monitoring Device into Upper Artery, Percutaneous Approach (ICD-10-PCS; principal; 2019-05-15)
PROC: 0W9B30Z Drainage of Left Pleural Cavity with Drainage Device, Percutaneous Approach (ICD-10-PCS; 2019-05-16)
PROC: 0W9B30Z Drainage of Left Pleural Cavity with Drainage Device, Percutaneous Approach (ICD-10-PCS; 2019-05-17)
PROC: 0W2BX0Z Change Drainage Device in Left Pleural Cavity, External Approach (ICD-10-PCS; 2019-05-18)
PROC: 02HV33Z Insertion of Infusion Device into Superior Vena Cava, Percutaneous Approach (ICD-10-PCS; 2019-05-18)
PROC: 0W9B30Z Drainage of Left Pleural Cavity with Drainage Device, Percutaneous Approach (ICD-10-PCS; 2019-05-19)
PROC: 0W2BX0Z Change Drainage Device in Left Pleural Cavity, External Approach (ICD-10-PCS; 2019-05-20)
DX: A41.9 Sepsis, unspecified organism (principal); J15.6 Pneumonia due to other Gram-negative bacteria; E43 Unspecified severe protein-calorie malnutrition; J96.21 Acute and chronic respiratory failure with hypoxia; J86.0 Pyothorax with fistula; T81.30XA Disruption of wound, unspecified, initial encounter; Z68.41 Body mass index [BMI] 40.0-44.9, adult; I48.92 Unspecified atrial flutter; I48.20 Chronic atrial fibrillation, unspecified; J91.8 Pleural effusion in other conditions classified elsewhere; I10 Essential (primary) hypertension; E78.00 Pure hypercholesterolemia, unspecified; F17.290 Nicotine dependence, other tobacco product, uncomplicated; D50.9 Iron deficiency anemia, unspecified; E78.5 Hyperlipidemia, unspecified; E03.9 Hypothyroidism, unspecified; I95.9 Hypotension, unspecified; E87.6 Hypokalemia; E83.42 Hypomagnesemia; E66.9 Obesity, unspecified; D47.3 Essential (hemorrhagic) thrombocythemia; R65.20 Severe sepsis without septic shock; D63.8 Anemia in other chronic diseases classified elsewhere; Y83.8 Other surgical procedures as the cause of abnormal reaction of the patient, or of later complication, without mention of misadventure at the time of the procedure; J98.4 Other disorders of lung; R91.1 Solitary pulmonary nodule; T85.9XXA Unspecified complication of internal prosthetic device, implant and graft, initial encounter; Y92.230 Patient room in hospital as the place of occurrence of the external cause; J98.2 Interstitial emphysema; Z79.899 Other long term (current) drug therapy; Z88.1 Allergy status to other antibiotic agents; Z90.49 Acquired absence of other specified parts of digestive tract; Z79.51 Long term (current) use of inhaled steroids; Y92.89 Other specified places as the place of occurrence of the external cause